=== PATIENT | female | born 1950 | race Caucasian/White ===

== ENCOUNTER 2023-02-05 10:55 | Outpatient (OUT) | payer MEDICARE, OTHER, SELFPAY ==
--- NOTE | 2023-02-05 11:01 | MM_ITS ---
Patient: BREANNA WAN Exam Date: 02/05/2023 : 1950 Gender:F Ordering : DR Isrrael Cruz D.O. Admission #: [id number] Family : Order #: [id number] CLICK HERE TO VIEW EXAM RADIOLOGY REPORT PROCEDURE: MM TOMOSYNTHESIS SCREENING BI COMPARISON: MG MAMM SCREEN 3D GLENYS CAD, 12/08/2021. MG MAMM SCREEN 3D GLENYS CAD, 11/22/2020. MG MAMM SCREEN GLENYS W CAD, 11/21/2019. MG MAMM GLENYS SCRN W CAD DIG, 09/22/2013. INDICATIONS: Screening Calculator Name NCI Breast Cancer Risk Assessment Tool 5 Year Breast Cancer Risk 2.60% Lifetime Breast Cancer Risk 6.30% Personal Breast Cancer No Personal Ovarian Cancer No Treatments None Family Cancers Aunt-maternal with breast cancer at age ~50; Sister with multiple myeloma cancer at age 66. LOCATION: [facility] BREAST COMPOSITION: Heterogeneously dense,which may obscure small masses. FINDINGS: DIAGNOSTIC CATEGORY 2--BENIGN FINDING: RIGHT BREAST: No significant suspicious finding. Stable biopsy marker clip. No significant change has occurred. LEFT BREAST: No significant suspicious finding. Scattered benign-appearing calcifications are present. No significant change has occurred. RECOMMENDATIONS: ROUTINE MAMMOGRAM AND CLINICAL EVALUATION IN 12 MONTHS. PLEASE NOTE: A NORMAL MAMMOGRAM DOES NOT EXCLUDE THE POSSIBILITY OF BREAST CANCER. A CLINICALLY SUSPICIOUS PALPABLE LUMP SHOULD BE BIOPSIED. Dictated by: Andrew Newby M.D. on 02/07/2023 at 09:12 Approved by: Andrew Newby M.D. on 02/07/2023 at 09:55
== END 2023-02-05 10:56 | disposition home or self-care (01) ==
LOC: MAMMO 10:56
PROVIDERS: PCP Internal Medicine; Visit Provider Internal Medicine
DX: Z12.31 Encounter for screening mammogram for malignant neoplasm of breast (principal); Z80.3 Family history of malignant neoplasm of breast; Z80.7 Family history of other malignant neoplasms of lymphoid, hematopoietic and related tissues
CPT/HCPCS: 77063; 77067

== ENCOUNTER 2023-12-10 07:57 | Outpatient (OUT) | payer MEDICARE, OTHER, SELFPAY ==
--- NOTE | 2023-12-10 | ECG_ITS ---
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
--- NOTE | 2023-12-10 08:17 | MM_ITS ---
Patient Name: BREANNA WAN MR#: [id number] : 1950 Exam Date: 12/10/2023 Ordering Doctor: DR Isrrael Cruz D.O. RADIOLOGY REPORT PROCEDURE: MM TOMOSYNTHESIS SCREENING BI COMPARISON: MG MAMM SCREEN 3D GLENYS CAD, 12/08/2021. MM TOMOSYNTHESIS SCREENING BI, 02/05/2023. INDICATIONS: Screening Calculator Name NCI Breast Cancer Risk Assessment Tool 5 Year Breast Cancer Risk 2.60% Lifetime Breast Cancer Risk 6.00% Personal Breast Cancer No Personal Ovarian Cancer No Treatments None Family Cancers Aunt-maternal with breast cancer at age ~50; Sister with multiple myeloma cancer at age 66. LOCATION: [facility] BREAST COMPOSITION: The breasts are heterogeneously dense,which may obscure small masses. FINDINGS: DIAGNOSTIC CATEGORY 2--BENIGN FINDING. NO CHANGE FROM COMPARISON. Scattered benign-appearing calcifications are present. Scattered benign-appearing lymph nodes are present. RIGHT BREAST: No significant suspicious finding. Stable micro clip marker lower inner quadrant, mid breast LEFT BREAST: No significant suspicious finding. RECOMMENDATIONS: ROUTINE MAMMOGRAM AND CLINICAL EVALUATION IN 12 MONTHS. PLEASE NOTE: A NORMAL MAMMOGRAM DOES NOT EXCLUDE THE POSSIBILITY OF BREAST CANCER. A CLINICALLY SUSPICIOUS PALPABLE LUMP SHOULD BE BIOPSIED. Dictated by: David Velasquez MD on 12/10/2023 at 11:27 Approved by: David Velasquez MD on 12/10/2023 at 11:29
== END 2023-12-10 07:58 | disposition home or self-care (01) ==
LOC: MAMMO 07:59
PROVIDERS: PCP Internal Medicine; Visit Provider Internal Medicine
DX: Z12.31 Encounter for screening mammogram for malignant neoplasm of breast (principal); I10 Essential (primary) hypertension; R00.0 Tachycardia, unspecified; Z80.3 Family history of malignant neoplasm of breast; Z80.7 Family history of other malignant neoplasms of lymphoid, hematopoietic and related tissues
CPT/HCPCS: 77063; 77067; 93005

== ENCOUNTER 2024-08-27 10:43 | Outpatient (OUT) | payer MEDICARE, OTHER, SELFPAY ==
--- NOTE | 2024-08-27 10:51 | ECG_ITS ---
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
--- OUTSIDE RECORDS SUMMARY | 2024-08-27 10:55 | XMS_ITS | CCD ---
Author Organization [facility] CliniSyme Care Team Providers Care Machine Engineer Name Role Phone REQUEST, DR RAMOS LISTED Admitting Unavaila ble REQUEST, DR RAMOS LISTED Attending Unavaila ble BALL, DR BROWER Primary Care Unavailable REQUEST, DR RAMOS LISTED Consulting Unavaila ble BALL, DR BROWER Admitting Unavailable BALL, DR BROWER Attending Unavailable BALL, DR BROWER Primary Care Unavailable BALL, DR BROWER Consulting Unavailable WEST, DR JESSICA Hardy Consulting Unavailable Ball, Isrrael Unavailable Allergies Allergy Classification Reported Allergen(s) Allergy Type Date of Onset Reaction(s) Facility (5 sources) ezetimibe Drug Allergy Unknown [facility] Data Other (5 sources) HMG-CoA reductase inhibitor Drug allergy Unknown [facility] Data Other (5 sources) Simvastatin Drug Allergy Unknown [facility]equ[facility] Data Other Medications Current Medications Medication Drug Class(es) Dates Sig (Normalized) Sig (Original) losartan potassium 25 mg oral tablet (4 sources) Angiotensin 2 Receptor Joseph Start: 01-31-2023 take 1 tablet by mouth every twenty-four hours Losartan Potassium 25 MG 1 tablet Orally Once a day Jan, Active rosuvastatin calcium 10 mg oral tablet (5 sources) HMG-CoA Reductase Inhibitor Rosuvastatin Calcium 10 MG TAKE 1 (ONE) TABLET DAILY IN THE EVENING Active Problems Problem Classification Problem Date Documented Date Episodic/Chronic Allergic reactions (5 sources) Allergic contact dermatitis due to plants, except food; Translations: [Allergic contact dermatitis due to plants, except food] Episodic Anxiety disorders (8 sources) Generalized anxiety disorder; Translations: [Generalized anxiety disorder] Chronic Cardiac dysrhythmias (1 source) Tachycardia, unspecified Episodic Diabetes mellitus without complication (1 source) Impaired fasting glucose Episodic Disorders of lipid metabolism (8 sources) Mixed hyperlipidemia; Translations: [Mixed hyperlipidemia] Chronic Essential hypertension (7 sources) Essential hypertension; Translations: [Essential (primary) hypertension] Chronic Genitourinary symptoms and ill-defined conditions (5 sources) Female stress incontinence; Translations: [Stress incontinence (female) (male)] Chronic Miscellaneous mental health disorders (5 sources) Primary insomnia; Translations: [Primary insomnia] Chronic Osteoarthritis (6 sources) Osteoarthritis of knee; Translations: [Bilateral primary osteoarthritis of knee] Chronic Other nutritional; endocrine; and metabolic disorders (6 sources) Body mass index 30+ - obesity; Translations: [Obesity, unspecified] Chronic Other nutritional; endocrine; and metabolic disorders (1 source) Obesity, unspecified Chronic Other nutritional; endocrine; and metabolic disorders (1 source) Obesity caused by energy imbalance; Translations: [Other obesity due to excess calories] Chronic Other nutritional; endocrine; and metabolic disorders (1 source) Other obesity due to excess calories Chronic Other nutritional; endocrine; and metabolic disorders (1 source) Body mass index (BMI) 33.0-33.9, adult Chronic Other screening for suspected conditions (not mental disorders or infectious disease) (5 sources) Encounter for screening mammogram for malignant neoplasm of breast; Translations: [ENC SCR MAMMO MALIG NEOPLASM BREAST] Onset: 12-08-2021 Episodic Residual codes; unclassified (1 source) Family history of malignant neoplasm of breast; Translations: [FAMILY HX MALIG NEOPLASM OF BREAST] Onset: 12-12-2021 Episodic Residual codes; unclassified (1 source) Family history of other malignant neoplasms of lymphoid, hematopoietic and related tissues; Translations: [FAM HX OTH MAL GEOVANI LYMPH HEMATPOETC] Onset: 12-12-2021 Episodic Residual codes; unclassified (5 sources) Postmenopausal state; Translations: [Asymptomatic menopausal state] Episodic Residual codes; unclassified (1 source) Asymptomatic menopausal state Episodic Spondylosis; intervertebral disc disorders; other back problems (5 sources) Lumbar spondylosis; Translations: [Spondylosis without myelopathy or radiculopathy, lumbar region] Chronic Substance-related disorders (8 sources) Tobacco user; Translations: [Nicotine dependence, cigarettes, in remission] Chronic Results Test Name Value Interpretation Reference Range Facility MG MAMM SCREEN 3D GLENYS CADon 12-08-2021 MG MAMM SCREEN 3D GLENYS CAD Patient: BREANNA WAN Exam Date: 12/08/2021 : 1950 Gender:F Ordering : DR ISRRAEL CRUZ D.O. Admission #: [id number] Family : Order #: [id number] CLICK HERE TO VIEW EXAM RADIOLOGY REPORT PROCEDURE: MAMMOGRAM SCREENING 3D BILATERAL CAD COMPARISON: MG MAMM SCREEN GLENYS W CAD, 11/21/2019. MG MAMM SCREEN 3D GLENYS CAD, 11/22/2020. INDICATIONS: Screening mammography Calculator Name NCI Breast Cancer Risk Assessment Tool 5 Year Breast Cancer Risk 2.60% Lifetime Breast Cancer Risk 6.70% Personal Breast Cancer No Personal Ovarian Cancer No Treatments None Family Cancers Aunt-maternal with breast cancer at age 50; Sister with multiple myeloma cancer at age 66. LOCATION: [facility] BREAST COMPOSITION: Heterogeneously dense,which may obscure small masses. FINDINGS: DIAGNOSTIC CATEGORY 1--NEGATIVE. NO CHANGE FROM COMPARISON ASSESSMENT. Scattered benign-appearing calcifications are present. Scattered benign-appearing lymph nodes are present. RIGHT BREAST: No significant suspicious finding. LEFT BREAST: No significant suspicious finding. RECOMMENDATIONS: ROUTINE MAMMOGRAM AND CLINICAL EVALUATION IN 12 MONTHS. PLEASE NOTE: A NORMAL MAMMOGRAM DOES NOT EXCLUDE THE POSSIBILITY OF BREAST CANCER. A CLINICALLY SUSPICIOUS PALPABLE LUMP SHOULD BE BIOPSIED. Dictated by: Jessica Velasquez MD on 12/09/2021 at 11:56 Approved by: Jessica Velasquez MD on 12/09/2021 at 11:59 Normal [facility] CBC AUTO DIFFon 09-07-2021 BASO # 0.1 103/ul Normal 0.0-0.1 [facility] Comment on above: Performed By: #### D ATCBC #### [facility] [address] [address] [address] Pk Duckworth Basophils/100 WBC (Bld) 0.6 % Normal 0.2-2.0 [facility] Comment on above: Performed By: #### D ATCBC #### [facility] [address] [address] [address] Pk Duckworth EO # 0.2 103/ul Normal 0.0-0.7 [facility] Comment on above: Performed By: #### D ATCBC #### [facility] [address] [address] [address] Pk Duckworth Eosinophils/100 WBC (Bld) 2.8 % Normal 0.9-7.0 [facility] Comment on above: Performed By: #### D ATCBC #### [facility] [address] [place] [address] Dr. Pk Duckworth Erythrocyte distribution width (RBC) [Ratio] 12.3 % Normal 11.0-15.0 [facility] Comment on above: Performed By: #### D ATCBC #### [facility] [address] [place] [address] Dr. Pk Duckworth Hematocrit (Bld) [Volume fraction] 47.7 % Normal 36.0-48.0 [facility] Comment on above: Performed By: #### D ATCBC #### [facility] [address] [place] [address] Dr. Pk Duckworth Hemoglobin (Bld) [Mass/Vol] 15.6 g/dL Normal 12.0-16.0 [facility] Comment on above: Performed By: #### D ATCBC #### [facility] [address] [place] [address] Dr. Pk Duckworth IG # 0.02 10e3/ul Normal 0.00-0.03 [facility] Comment on above: Performed By: #### D ATCBC #### [facility] [address] [place] [address] Dr. Pk Duckworth IG % 0.3 % Normal 0.0-0.5 [facility] Comment on above: Performed By: #### D ATCBC #### [facility] [address] [place] [address] Dr. Pk Duckworth LYMPH # 2.4 103/ul Normal 1.2-3.8 [facility] Comment on above: Performed By: #### D ATCBC #### [facility] [address] [place] [address] Dr. Pk Duckworth Lymphocytes/100 WBC (Bld) 30.4 % Normal 20.5-60.0 [facility] Comment on above: Performed By: #### D ATCBC #### [facility] [address] [place] [address] Dr. Pk Duckworth MCH (RBC) [Entitic mass] 29.3 pg Normal 26.7-34.0 [facility] Comment on above: Performed By: #### D ATCBC #### [facility] [address] [address] [address] Pk Duckworth MCHC (RBC) [Mass/Vol] 32.7 g/dL Normal 29.9-35.2 [facility] Comment on above: Performed By: #### D ATCBC #### [facility] [address] [address] [address] Pk Duckworth MCV (RBC) [Entitic vol] 89.7 fL Normal 81.0-99.0 [facility] Comment on above: Performed By: #### D ATCBC #### [facility] [address] [place] [address] Dr. Pk Duckworth MONO # 0.4 103/ul Normal 0.3-0.8 [facility] Comment on above: Performed By: #### D ATCBC #### [facility] [address] [place] [address] Dr. Pk Duckworth Monocytes/100 WBC (Bld) 5.5 % Normal 1.7-12.0 [facility] Comment on above: Performed By: #### D ATCBC #### [facility] [address] [place] [address] Dr. Pk Duckworth NEUT # 4.8 103/ul Normal 1.4-6.5 [facility] Comment on above: Performed By: #### D ATCBC #### [facility] [address] [place] [address] Dr. Pk Duckworth Neutrophils/100 WBC (Bld) 60.4 % Normal 43.0-75.0 [facility] Comment on above: Performed By: #### D ATCBC #### [facility] [address] [place] [address] Dr. Pk Duckworth Platelet mean volume (Bld) [Entitic vol] 10.3 fL Normal 9.5-13.5 [facility] Comment on above: Performed By: #### D ATCBC #### [facility] [address] [place] [address] Dr. Pk Duckworth PLT 270 103/ul Normal 150-450 [facility] Comment on above: Performed By: #### D ATCBC #### [facility] [address] [address] [address] Pk Duckworth RBC 5.32 106/ul Normal 4.20-5.40 [facility] Comment on above: Performed By: #### D ATCBC #### [facility] [address] [address] [address] Pk Duckworth WBC 8.0 103/ul Normal 4.0-11.0 [facility] Comment on above: Performed By: #### D ATCBC #### [facility] [address] [place] [address] Dr. Pk Duckworth CAMRON- BMP WITH LIPIDon 2021 Anion gap [Moles/Vol] 11.9 mmol/L Normal [facility] Comment on above: Performed By: #### D ATBMP #### [facility] [address] [place] [address] Dr. Pk Duckworth Calcium [Mass/Vol] 9.1 mg/dL Normal 8.4-10.2 [facility] Comment on above: Performed By: #### D ATBMP #### [facility] [address] [place] [address] Dr. Pk Duckworth Chloride [Moles/Vol] 102 mmol/L Normal 98-107 [facility] Comment on above: Performed By: #### D ATBMP #### [facility] [address] [place] [address] Dr. Pk Duckworth Cholesterol [Mass/Vol] 227 mg/dL Critically high <=200 [facility] Comment on above: Performed By: #### D ATBMP #### [facility] [address] [place] [address] Dr. Pk Duckworth Cholesterol in HDL [Mass/Vol] 60 mg/dL Normal [facility] Comment on above: Performed By: #### D ATBMP #### [facility] [address] [place] [address] Dr. Pk Duckworth Cholesterol in LDL [Mass/Vol] 104.2 mg/dL Normal [facility] Comment on above: Performed By: #### D ATBMP #### [facility] [address] [address] [address] Pk Duckworth CO2 [Moles/Vol] 30.2 mmol/L Critically high 22.0-30.0 [facility] Comment on above: Performed By: #### D ATBMP #### [facility] [address] [address] [address] Pk Duckworth Creatinine [Mass/Vol] 0.71 mg/dL Normal 0.52-1.04 [facility] Comment on above: Performed By: #### D ATBMP #### [facility] [address] [address] [address] Pk Duckworth EGFR-AF FINNISH >60 Normal >=60 [facility] Comment on above: Performed By: #### D ATBMP #### [facility] [address] [address] [address] Pk Duckworth EGFR-NON AF FINNISH >60 Normal >=60 [facility] Comment on above: Performed By: #### D ATBMP #### [facility] [address] [address] [address] Pk Duckworth Glucose [Mass/Vol] 113 mg/dL Critically high 74-106 [facility] Comment on above: Performed By: #### D ATBMP #### [facility] [address] [address] [address] Pk Duckworth HDL NORMAL > or = 60 mg/dl - LO W CARDIOVASCULAR RISK <40 mg/dl - HIGH CARDIOVASCULAR RISK Normal [facility] Comment on above: Performed By: #### D ATBMP #### [facility] [address] [address] [address] Pk Duckworth LDL CALC NORMAL SEE BELOW Normal [facility] Comment on above: Result Comment: <100 mg/dl OPTIMAL 100 - 129 mg/dl NEAR OR ABOVE OPTIMAL 130 - 159 mg/dl BORDERLINE HIGH 160 - 189 mg/dl HIGH >190 mg/dl VERY HIGH Performed By: #### D ATBMP #### [facility] [address] [address] [address] Pk Duckworth Potassium [Moles/Vol] 4.1 mmol/L Normal 3.4-5.0 [facility] Comment on above: Performed By: #### D ATBMP #### [facility] [address] [address] [address] Pk Duckworth Sodium [Moles/Vol] 140 mmol/L Normal 137-145 [facility] Comment on above: Performed By: #### D ATBMP #### [facility] [address] [address] [address] Pk Duckworth Triglyceride [Mass/Vol] 314 mg/dL Critically high <=150 [facility] Comment on above: Performed By: #### D ATBMP #### [facility] [address] [address] [address] Pk Duckworth Urea nitrogen [Mass/Vol] 19.0 mg/dL Critically high 7.0-17.0 [facility] Comment on above: Performed By: #### D ATBMP #### [facility] [address] [place] [address] Dr. Pk Duckworth Urea nitrogen/Creatinine [Mass ratio] 26.8 mg/mg Normal [facility] Comment on above: Performed By: #### D ATBMP #### [facility] [address] [place] [address] Dr. Pk Duckworth VLDL CALC 62.8 mg/dL Normal [facility] Comment on above: Performed By: #### D ATBMP #### [facility] [address] [address] [address] Pk Duckworth CBC Without Differentialon 0 10-02-2020 Erythrocyte distribution width (RBC) [Ratio] 13.2 % Normal 11.9-15.3 [facility] Comment on above: Performed By: #### O RAVI CMP, OUTREACH LIPID, CBCNOOUTREACH #### [facility] [address] Hematocrit (Bld) [Volume fraction] 44.5 % Normal 34.0-46.4 [facility] Comment on above: Performed By: #### O UTREACH CMP, OUTREACH LIPID, CBCNOOUTREACH #### [address] Hemoglobin (Bld) [Mass/Vol] 15.0 g/dL Normal 11.8-15.4 [facility] Comment on above: Performed By: #### O UTREACH CMP, OUTREACH LIPID, CBCNOOUTREACH #### [address] MCH (RBC) [Entitic mass] 30.3 pg Normal 24.7-34.3 [facility] Comment on above: Performed By: #### O UTREACH CMP, OUTREACH LIPID, CBCNOOUTREACH #### [address] MCV (RBC) [Entitic vol] 89.9 fL Normal 80-100 [facility] Comment on above: Performed By: #### O UTREACH CMP, OUTREACH LIPID, CBCNOOUTREACH #### [address] Mean Corpuscular HGB Conc 33.7 g/dL Normal 32.0-35.0 [facility] Comment on above: Performed By: #### O UTREACH CMP, OUTREACH LIPID, CBCNOOUTREACH #### [address] Platelet mean volume (Bld) [Entitic vol] 9.4 fL Normal 6.3-10.7 [facility] Comment on above: Result Comment: PERF ORMED BY: [place] [id number] PATHOLOGIST [employer]PER[employer]OR ALONDRA SOMERS M.D. Performed By: #### O UTREACH CMP, OUTREACH LIPID, CBCNOOUTREACH #### [address] Platelets (Bld) [#/Vol] 277 10*3/uL Normal 150-450 [facility] Comment on above: Performed By: #### O UTREACH CMP, OUTREACH LIPID, CBCNOOUTREACH #### [place] [address] [place] RBC (Bld) [#/Vol] 4.95 10*6/uL Normal 3.60-5.00 [facility] Comment on above: Performed By: #### O UTREACH CMP, OUTREACH LIPID, CBCNOOUTREACH #### [facility] [address] [place] [address] WBC (Bld) [#/Vol] 6.7 10*3/uL Normal 3.8-11.6 [facility] Comment on above: Performed By: #### O UTREACH CMP, OUTREACH LIPID, CBCNOOUTREACH #### [facility] [address] [place] [address] CMP Outreachon 10-02-2020 Albumin [Mass/Vol] 4.2 g/dL Normal 3.2-5.5 [facility] Comment on above: Performed By: #### O UTREACH CMP, OUTREACH LIPID, CBCNOOUTREACH #### [facility] [address] [place] [address] ALP [Catalytic activity/Vol] 76 U/L Normal 32-92 [facility] Comment on above: Performed By: #### O UTREACH CMP, OUTREACH LIPID, CBCNOOUTREACH #### [address] ALT [Catalytic activity/Vol] 27 U/L Normal 10-60 [facility] Comment on above: Performed By: #### O UTREACH CMP, OUTREACH LIPID, CBCNOOUTREACH #### [facility] [address] [place] [address] AST [Catalytic activity/Vol] 26 U/L Normal 10-42 [facility] Comment on above: Performed By: #### O UTREACH CMP, OUTREACH LIPID, CBCNOOUTREACH #### [facility] [address] [place] [address] Bilirubin [Mass/Vol] 0.9 mg/dL Normal 0.3-1.2 [facility] Comment on above: Performed By: #### O UTREACH CMP, OUTREACH LIPID, CBCNOOUTREACH #### [address] [place] [address] [place] Calcium [Mass/Vol] 9.4 mg/dL Normal 8.2-10.2 [facility] Comment on above: Performed By: #### O UTREACH CMP, OUTREACH LIPID, CBCNOOUTREACH #### [facility] [address] [place] [address] [place] Chloride [Moles/Vol] 102 mmol/L Normal 95-114 [facility] Comment on above: Performed By: #### O UTREACH CMP, OUTREACH LIPID, CBCNOOUTREACH #### [facility] [address] [place] [address] [place] CO2 [Moles/Vol] 27.4 mmol/L Normal 22.0-30.0 [facility] Comment on above: Performed By: #### O UTREACH CMP, OUTREACH LIPID, CBCNOOUTREACH #### [facility] [address] [place] [address] [place] Creatinine [Mass/Vol] 0.62 mg/dL Normal 0.44-1.03 [facility] Comment on above: Performed By: #### O UTREACH CMP, OUTREACH LIPID, CBCNOOUTREACH #### [facility] [address] [place] [address] Estimated GFR ( Krystal > 60 [facility] Comment on above: Result Comment: GFR estimated reference range: According to KDOQI guidelines, <60 ml/min/1.73m2 is sufficient to diagnose a patient with chronic kidney disease. Performed By: #### O UTREACH CMP, OUTREACH LIPID, CBCNOOUTREACH #### [facility] [address] [place] [address] [place] Estimated GFR (Non- Am > 60 [facility] Comment on above: Performed By: #### O UTREACH CMP, OUTREACH LIPID, CBCNOOUTREACH #### [facility] [address] [place] [address] [place] Glucose [Mass/Vol] 107 mg/dL High 70-100 [facility] Comment on above: Result Comment: [place] Glucose Reference Range is dependent on time and content of last meal. Glucose of more than 200 mg/dL in a nonstressed, ambulatory subject supports the diagnosis of Diabetes Mellitus. ADA recommended reference range Performed By: #### O UTREACH CMP, OUTREACH LIPID, CBCNOOUTREACH #### [facility] [address] Potassium [Moles/Vol] 3.9 mmol/L Normal 3.5-5.1 [facility] Comment on above: Performed By: #### O UTREACH CMP, OUTREACH LIPID, CBCNOOUTREACH #### [facility] [address] [place] [address] [place] Protein [Mass/Vol] 6.9 g/dL Normal 6.1-7.9 [facility] Comment on above: Performed By: #### O UTREACH CMP, OUTREACH LIPID, CBCNOOUTREACH #### [facility] [address] [place] [address] [place] Sodium [Moles/Vol] 140 mmol/L Normal 136-146 [facility] Comment on above: Performed By: #### O UTREACH CMP, OUTREACH LIPID, CBCNOOUTREACH #### [facility] [address] [place] [address] [place] Urea nitrogen [Mass/Vol] 12 mg/dL Normal 9-23 [facility] Comment on above: Performed By: #### O UTREACH CMP, OUTREACH LIPID, CBCNOOUTREACH #### [facility] [address] [place] [address] Lipid Profile Outreachon Cholesterol [Mass/Vol] 248 mg/dL High 140-200 [facility] Comment on above: Result Comment: Chol less than 200 mg/dl low risk Chol 201-239 mg/dl borderline risk Chol 240 mg/dl and greater high risk Performed By: #### O UTREACH CMP, OUTREACH LIPID, CBCNOOUTREACH #### [facility] [address] [id number] [facility] Cholesterol in HDL [Mass/Vol] 57 mg/dL Normal 35-85 [facility] Comment on above: Result Comment: HDL CHOL ATP-III CLASSIFICATION Cardiovascular Risk HDL > or equal to 60 mg/dL LOW HDL < 40 mg/dL HIGH Performed By: #### O UTREACH CMP, OUTREACH LIPID, CBCNOOUTREACH #### [facility] [address] Cholesterol.total/C holesterol in HDL [Mass ratio] 4.4 {ratio} Normal <5.0 [facility] Comment on above: Result Comment: PERF ORMED BY: [place] [id number] PATHOLOGIST [employer] SUPER[employer]OR ALONDRA SOMERS M.D. Performed By: #### O UTREACH CMP, OUTREACH LIPID, CBCNOOUTREACH #### [facility] [address] LDL Cholesterol,Calcula yecenia 130 mg/dL High 0-100 [facility] Comment on above: Result Comment: LDL ATP III CLASSIFICATION LDL less than 100 mg/dL Optimal LDL 100-129 mg/dL Near or above optimal LDL 130-159 mg/dL Borderline high LDL 160-189 mg/dL High LDL greater than 189 mg/dL Very high Performed By: #### O UTREACH CMP, OUTREACH LIPID, CBCNOOUTREACH #### [facility] [address] Triglyceride w/Reflex 303 mg/dL High 35-149 [facility] Comment on above: Result Comment: TRIG ATP III CLASSIFICATION TRIG less than 150 mg/dL Normal TRIG 150-199 mg/dL Borderline high TRIG 200-500 mg/dL High TRIG greater than 500 mg/dL Very high Standard traceable to the Center for Disease Conrtrol and Prevention (CDC) test method. Performed By: #### O UTREACH CMP, OUTREACH LIPID, CBCNOOUTREACH #### [facility] [address] VLDL CHOLESTEROL 60 mg/dL Normal [facility] Comment on above: Performed By: #### O UTREACH CMP, OUTREACH LIPID, CBCNOOUTREACH #### [facility] [address] Progress Note-Physicianon Progress Note-Physician Patient: BREANNA WAN Age: 70 years Sex: Female : 1950 Associated Diagnoses: None Author: Jose M Jones CRNA Review of Systems Constitutional: Negative. Health Status Allergies: Allergic Reactions (Selected) No Known Allergies, Allergies (1) Active Reaction No Known Allergies None Documented Current medications: (Selected) Inpatient Medications Ordered Ocuflox 0.3% Soln-Opth: 1 drop(s), Soln-Opth, Eye-Left, q10min for 3 dose(s), Stop date 08/10/20 7:59:00 EST, Routine, Start date 08/10/20 7:30:00 EST Phenylephrine 2.5% Soln-Opth: 1 drop(s), Soln-Opth, Eye-Left, q10min for 3 dose(s), Stop date 08/10/20 7:59:00 EST, Routine, Start date 08/10/20 7:30:00 EST Valium 5 mg Tab: 5 mg = 1 tab(s), Tab, Oral, PREOP, Routine, Start date 08/10/20 7:30:00 EST acetaminophen 325 mg Tab: 975 mg = 3 tab(s), Tab, Oral, Once, Stop date 08/10/20 8:00:00 EST, Routine, Start date 08/10/20 8:00:00 EST cyclopentolate Opth 1% Nicole 2 mL: 1 drop(s), Soln-Opth, Eye-Left, q10min for 3 dose(s), Stop date 08/10/20 7:59:00 EST, Routine, Start date 08/10/20 7:30:00 EST moxifloxacin 150 microgram/ 0.1 mL Intracameral: 750 mcg, 0.5 mL, Soln-Opth, Eye-Left, Once, Stop date 08/10/20 8:00:00 EST, Routine, Start date 08/10/20 8:00:00 EST tropicamide Opth 1% Nicole 15 mL: 1 drop(s), Soln-Opth, Eye-Left, q10min for 3 dose(s), Stop date 08/10/20 7:59:00 EST, Routine, Start date 08/10/20 7:30:00 EST Documented Medications Documented [place] Calcium with Vitamin D: 1 tab(s), Oral, Daily, Prophylaxis CoQ10: 400 mg, Oral, Daily, Prophylaxis Multivitamin, Therapeutic w/ Minerals: 1 tab(s), Oral, Daily, Prophylaxis rosuvastatin 10 mg Tab: 10 mg = 1 tab(s), Oral, Daily, Prophylaxis, Home Medications (4) Active [place] Calcium with Vitamin D 1 tab(s), Oral, Daily CoQ10 400 mg, Oral, Daily Multivitamin, Therapeutic w/ Minerals 1 tab(s), Oral, Daily rosuvastatin 10 mg Tab 10 mg = 1 tab(s), Oral, Daily Problem list: No qualifying data available Histories Past Medical History: No active or resolved past medical history items have been selected or recorded. Family History: No family history items have been selected or recorded. Procedure history: No active procedure history items have been selected or recorded. Social History Social & Psychosocial Habits No Data Available . Physical Examination Measurements from flowsheet : Measurements 08/09/2020 11:41 EST Height/Length Dosing 157.5 cm Weight Dosing 79.8 kg 08/09/2020 9:31 EST Height/Length Measured 157.48 cm Height/Length Dosing 157.5 cm Weight Dosing 79.8 kg BSA Measured 1.87 m2 Body Mass Index Measured 32.19 kg/m2 Weight Measured 79.83 kg Review / Management Results review: No qualifying data available . Normal [facility] Comment on above: Result Comment: Elec tronically Signed By: Jose M Jones CRNA IntraOperative Documentson 0 08-13-2020 IntraOperative Documents [id number]#1.00CD :127 Normal [facility] Coding Summary.on 08-12-2020 Coding Summary. CODING DATE: 021 FINAL [facility] STATUS: Home (Routine DC) PAYOR: Commercial Insurance ADMIT DX: REASON FOR VISIT DX: Z01.812 Encounter for preprocedural laboratory examination FINAL DX: PRINCIPAL: Z01.812 Encounter for preprocedural laboratory examination SECONDARY: Z20.828 Contact with and (suspected) exposure to other viral communicable diseases PYMT PROC APC STAT DESCRIPTION DOCTOR NAME DATE NOTE: The code number assigned matches the documented diagnosis and / or procedure in the patient's chart. However, the narrative phrase printed from the coding software may appear abbreviated, or result in slightly different terminology. Coded By: Scarlett Quinones CphT Date Saved: 08/12/2020 08:05 pm Normal [facility] Coding Summary. CODING DATE: FINAL [facility] STATUS: Home (Routine DC) PAYOR: Medicare APC DESCRIPTION 5491 Level 1 Intraocular Procedures ADMIT DX: REASON FOR VISIT DX: H25.13 Age-related nuclear cataract, bilateral FINAL DX: PRINCIPAL: H25.13 Age-related nuclear cataract, bilateral SECONDARY: E78.00 Pure hypercholesterolemia, unspecified PYMT PROC APC STAT DESCRIPTION DOCTOR NAME DATE 75310 5491 J1 Extracapsular cataract Patrick Calle DO 08/10/2020 removal with insertion of intraocular lens prosthesis (1 stage procedure), manual or mechanical technique (eg, irrigation and aspiration or phacoemulsification); without endoscopic cyclophotocoagulation LT Left side (used to identify procedures performed on the left side of the body) NOTE: The code number assigned matches the documented diagnosis and / or procedure in the patient's chart. However, the narrative phrase printed from the coding software may appear abbreviated, or result in slightly different terminology. Revised Coded By: Ekaterina Greene Revised Date Saved: 08/11/2020 01:53 pm [facility] Main OR Intraoperative Recor don 08-12-2020 Main OR Intraoperative Record IntraOp Document Type FT Summary Primary Physician: Patrick Calle DO Finalized Date/Time: 08/12/20 13:24:28 Pt. Name: BREANNA WAN/Sex: 1950 Female Med Rec #: [id number] Physician: Patrick Calle DO Financial #: [id number] Pt. Type: A Room/Bed: AS08/ Admit/Disch: 08/10/20 07:24:15 - 08/10/20 10:30:00 Institution: Case Times FT Entry 1 Patient Times In Room 08/10/20 09:20:00 Out Room 08/10/20 09:38:00 Procedure Times Start 08/10/20 09:25:00 Stop 08/10/20 09:37:00 Anesthesia Times Last Modified By: Viviane Arzate RN 08/10/20 09:37:47 General Comments: 08/12/2020 - chart logged and finalized for charges. Dwayne Pascual, MSN, RN Case Attendance FT Entry 1 Entry 2 Entry 3 Case Attendee Patrick Calle DO RN, Felicia Garcia RN Role Performed Surgeon - Primary Senior Planner - Primary Senior Planner - Primary Time In 08/10/20 09:20:00 08/10/20 09:20:00 08/10/20 09:20:00 Time Out 08/10/20 09:38:00 08/10/20 09:38:00 08/10/20 09:38:00 Procedure CATARACT EXTRACTION W/ CATARACT EXTRACTION W/ CATARACT EXTRACTION W/ INTRAOCULAR LENS(Left) INTRAOCULAR LENS(Left) INTRAOCULAR LENS(Left) Comments Last Modified By: Huey MURILLO, Viviane Arzate RN, Viviane Arzate RN, Viviane Johnson 08/10/20 09:37:49 08/10/20 09:37:49 08/10/20 09:37:49 Entry 4 Entry 5 Case Attendee Lamar HARO/SACriss Rachel L Role Performed Scrub - Primary Staff - Other Time In 08/10/20 09:20:00 08/10/20 09:20:00 Time Out 08/10/20 09:38:00 08/10/20 09:38:00 Procedure CATARACT EXTRACTION W/ CATARACT EXTRACTION W/ INTRAOCULAR LENS(Left) INTRAOCULAR LENS(Left) Comments Last Modified By: Huey MURILLO, Viviane Arzate RN, Viviane Johnson 08/10/20 09:37:49 08/10/20 09:37:49 Perioperative Protocols FT Pre-Care Text: Implements protective measures prior to operative or invasive procedure, confirms identity before the operative or invasive procedure, verifies operative procedure, surgical site, and laterality Entry 1 Procedure(s) CATARACT EXTRACTION W/ Patient Identity Birthday, ID Band INTRAOCULAR LENS(Left) Verified (select at Check, Patient least 2): Participation Consents / H and P HandP, Surgery/Procedure Operative Site Present Verified Consent Marking Verified Surgical Site Yes Laterality Verified Yes Verified Procedure Verified Yes Correct Patient Yes Position Verified Availability Equipment, Implant, Prep Dry n/a Verified (If Medication Applicable) PreOp Antibiotic No Time Out Patrick Calle DO, Sita Arzate RN, Viviane J, Renner RN, Lamar Appiah ASSISTANT MANAGER/EMBALMER/, Criss Time Out Complete 08/10/20 09:23:00 Outcomes Met? Yes Last Modified By: Viviane Arzate RN 08/10/20 09:25:18 Post-Care Text: The patient is free from signs and symptoms of injury caused by extraneous objects Allergy Information FT Pre-Care Text: Verifies allergies Entry 1 Allergies Reviewed? Yes Allergies Reviewed Self/Patient With Outcomes Met? Yes Last Modified By: Viviane Arzate RN 08/10/20 09:26:04 Post-Care Text: The patient received appropriate medication(s) safely administered during the perioperative period Surgical Procedures FT Entry 1 Procedure Description Procedure CATARACT EXTRACTION W/ Modifiers Left INTRAOCULAR LENS IMPLANTATION Surgeon Description LEFT EYE CATARACT EXTRACTION WITH INTRAOCULAR LENS IMPLANTATION Primary Procedure Yes Primary Surgeon Patrick Calle DO 08/10/20 09:25:00 Stop 08/10/20 09:37:00 Anesthesia Type Local Surgical Service Ophthalmology Wound Class 1 - Clean Last Modified By: Viviane Arzate RN 08/10/20 09:38:18 General Case Data FT Pre-Care Text: Classifies surgical wound, implements aseptic technique, initiates traffic control Entry 1 Case Information OR OR 3 FT Case Level Level 2 Wound Class 1 - Clean Specialty Ophthalmology Preop Diagnosis LEFT EYE CATARACT Postop Same As Preop Yes Postop Diagnosis LEFT EYE CATARACT Outcomes Met? Yes Last Modified By: Viviane Arzate RN 08/10/20 09:26:37 Post-Care Text: The patient is free from signs and symptoms of infection Skin Assessment (Pre Procedure) FT Pre-Care Text: Implements protective measures to prevent skin/ tissue injury due to thermal or mechanical sources Evaluates for signs and symptoms of physical injury to skin and tissue Entry 1 Skin Integrity Unable to Visualize Skin Abnormality No Outcomes Met? Yes Last Modified By: Viviane Arzate RN 08/10/20 09:26:32 Post-Care Text: The patient is free from signs and symptoms of injury caused by extraneous objects Patient Positioning FT Pre-Care Text: Identifies physical alterations that require additional precautions for procedure-specific positioning, verifies presence of prosthetics or corrective devices, positions the patient, evaluates the patient for signs and symptoms of injury as a result of positioning Entry 1 Procedure CATARACT EXTRACTION W/ Additional folded towel under head INTRAOCULAR LENS(Left) Information Body Position Supine Feet Uncrossed? Yes Left Arm Position Resting at Side Right Arm Position Resting at Side Left Leg Position Extended Right Leg Position Extended Positioning Device Pillow Large Under Knees Press Points Checked Yes By Viviane Arzate RN Outcomes Met? Yes Last Modified By: Viviane Arzate RN 08/10/20 09:26:48 Post-Care Text: The patient is free from signs and symptoms of injury related to positioning Patient Care Devices FT Pre-Care Text: Implements protective measures to prevent skin/ tissue injury due to thermal or mechanical sources Entry 1 Entry 2 Entry 3 Equipment Type MICROSCOPE EYE[F] MONITOR CHARGE SURGERY PHACO UNIT[F] [F] Equipment Number Equipment Setting Outcomes Met? Yes Yes Yes Last Modified By: Viviane Arzate RN, RN, Viviane Valerio RN 08/10/20 07:58:10 08/10/20 07:58:10 08/10/20 07:58:10 Post-Care Text: The patient is free from signs and symptoms of injury caused by extraneous objects Transport To OR FT Pre-Care Text: Transports according to individual needs. Evaluates for signs and symptoms of skin and tissue injury as a result of transfer or transport Entry 1 Via Cart By Viviane Arzate RN Safety Precautions Side Rails Up Outcomes Met? Yes Last Modified By: Viviane Arzate RN 08/10/20 09:26:54 Post-Care Text: The patient is free from signs and symptoms of injury related to transfer/transport Counts Verification FT Pre-Care Text: Performs required counts Entry 1 Procedure(s) CATARACT EXTRACTION W/ Type Initial INTRAOCULAR LENS(Left) Items Instruments Status Correct By Lamar HARO/Criss DANIELSON Outcomes Met? Yes Last Modified By: Viviane Arzate RN 08/10/20 09:33:43 Post-Care Text: The patient is free from signs and symptoms of injury caused by extraneous objects Skin Prep FT Pre-Care Text: Performs skin preparations Entry 1 Procedure CATARACT EXTRACTION W/ Prep Area operative site LEFT EYE INTRAOCULAR LENS(Left) Prep Agents Saline Rinse, Betadine Scrub and Solution Hair Removal Methods Not Indicated By Felicia Renner RN Outcomes Met? Yes Last Modified By: Viviane Arzate RN 08/10/20 09:32:30 Post-Care Text: The patient is free from signs and symptoms of infection Departure From OR FT Pre-Care Text: Transports according to individual needs. Evaluates for signs and symptoms of skin and tissue injury as a result of transfer or transport. Entry 1 Via Cart Safety Precautions Side Rails Up PostOp Destination Pre Surgery/ASU Transported By Viviane Arzate RN Patient Status Stable Skin. Condition Unable to Visualize Airway Maintenance Oxygen in Use? No Outcomes Met? Yes Last Modified By: Viviane Arzate RN 08/10/20 09:32:09 Post-Care Text: The patient is free from signs and symptoms of injury related to transfer/transport General Comments: PATIENT TAKEN BACK TO [facility] VIA TRANSPORTER FOR DISCHARGE HOME. LIDIA MORRISON Dressing/Packing FT Pre-Care Text: Administers care to wound sites Entry 1 Type Dressing Site and Details EYE SHIELD AND PAPER TAPE TO LEFT EYE Outcomes Met? Yes Last Modified By: Viviane Arzate RN 08/10/20 09:31:32 Post-Care Text: The patient is free from signs and symptoms of infection Medication Administration FT Pre-Care Text: Verifies allergies, administers prescribed medications and solutions, administers prescribed antibiotic therapy and immunizing agents as ordered, evaluates response to medications Administers prescribed medications and solutions Entry 1 Route of Admin Field Expiration Date Yes Verified Outcomes Met? Yes Last Modified By: Viviane Arzate RN 08/10/20 07:58:24 Post-Care Text: The patient received appropriate medication(s) safely administered during the perioperative period For Arizmendi-Armen please see scanned medication reconcilliation form for medications used at the field during the procedure. Implant Log FT Pre-Care Text: Records devices implanted during the operative or invasive procedure Entry 1 Procedure CATARACT EXTRACTION W/ Implant/Explant Implant INTRAOCULAR LENS(Left) Implant Identification FT Description LILO [id number] 12.50MM Serial Number [id number] 22.00 [[id number]][F] Lot Number [id number] Logistics Administrator FT[employer] Catalog ?# [id number] [F] Size 22.0 Expiration Date 01/29/23 Unique Device [id number] Identifier (FLAKITA) Human Readable {[id number] Machine Readable [id number] Barcode Barcode Usage Data FT Implant Site Ear L Quantity 1 Implanted By Patrick Calle DO Biological Implants MR Classification Unknown Outcomes Met? Yes Last Modified By: Viviane Arzate RN 08/10/20 09:31:01 Post-Care Text: The patient is free from signs and symptoms of injury caused by extraneous objects Case Comments Finalized By: SONIA Pascual RN, Andrea Document Signatures Signed By: Viviane Arzate RN 08/10/20 09:38 SONIA Pascual RN, Andrea 08/12/20 13:24 Normal [facility] Operative Reporton Operative Report Date of Surgery: 08/10/2020 SURGEON: Patrick Calle D.O. PREOPERATIVE DIAGNOSIS: Nuclear sclerotic cataract, left eye POSTOPERATIVE DIAGNOSIS: Nuclear sclerotic cataract, left eye OPERATION: Cataract extraction with intraocular lens placement, left eye ANESTHESIA: Topical COMPLICATIONS: None ESTIMATED BLOOD LOSS: Zero PROCEDURE: The patient was brought to the Operating Room in the supine position. After proper identification, the left eye was prepped and draped in a sterile ophthalmic fashion. Two drops of Tetracaine were placed into the eye and a paracentesis was created at the two oclock position. Approximately 1 cc of 1% unpreserved Xylocaine was injected into the anterior chamber and this was followed by Amvisc Plus. Using a 2.6 mm keratome blade, a clear corneal incision was created at the twelve oclock limbus. A cystotome was fashioned out of a 25 gauge needle and a curvilinear capsulorrhexis was begun and continued for 360 degrees with Utrata forceps. Balanced Salt Solution on a cannula was injected under the anterior capsule to hydrodissect as well as hydrodelineate the lens. After ensuring mobility with a second handpiece, phacoemulsification was performed in a conquer and divide type fashion. After all nuclear material had been removed from the eye, IA was introduced into the anterior chamber and all residual cortical material was cleaned up. Additional Amvisc Plus was injected into the posterior bag and a lens Model MX60 22.0 diopters was injected into the posterior bag as well. This was dialed into position with a secondhand piece and centered. After ensuring centration, IA was reintroduced into the anterior chamber and all residual Amvisc Plus was removed from the eye. Balanced Salt Solution on a cannula was injected into the stroma of the clear corneal incision as well as the paracentesis to hydrate the wounds. Additional Balanced Salt Solution was injected into the anterior chamber to pressurize the eye to approximately 20-22 mmHg by finger tension. Weck-abdiel sponges were then utilized to check the wounds to be watertight. One drop of Iopidine, one drop of prednisolone acetate and one drop of Ocuflox were placed into the eye and a shield was placed over top. The patient was sent to the Postoperative Area in satisfactory condition to follow up the following day for postoperative care. Patrick Calle D.O. gls Dictated: 08/10/2020 #[id number] Typed: 08/11/2020 #[id number] cc: Patrick Calle D.O. [facility] Comment on above: Result Comment: Elec tronically Signed By: Patrick Calle DO\.br\Date and Time Signed: 08/12/20 14:09 EST Discharge Instructionson Discharge Instructions [id number] :127 [facility] IntraOperative Documentson 08-11-2020 IntraOperative Documents [id number]#1.00CD :127 [facility] Preoperative Documentson Preoperative Documents [id number]#1.00CD :127 [facility] Consent for Procedure/Surger yon 08-10-2020 Consent for Procedure/Surgery [id number]#1.00CD :127 [facility] Consent for Treatmenton Consent for Treatment [id number]#1.00CD: 127 [facility] History and Physicalon 08-10 History and Physical Handp Reviewed. No changes since dictated. HOSPITAL REGULATIONS: ALL Positive Important Negative Findings Shall Be Recorded DATE ADMITTED: 08/10/2020 HISTORY: The patient is a 70-year-old white female with complaints of declining vision out of her left eye. Gradually over the last year, she has felt that she is bothered by halos and glare at nighttime due to headlights creating these from oncoming traffic. She is also stating she is having difficulty reading. Objects such as crossword puzzles are difficult to see the clues. PAST OCULAR HISTORY: Cataracts. PAST MEDICAL HISTORY: 1. Hypercholesterolemia. 2. Hysterectomy. 3. Gallbladder removed. 4. Knee surgery. 5. Carpal tunnel. 6. Tonsillectomy. PSYCHOSOCIAL HISTORY: Denies tobacco, alcohol or recreational drug abuse. SYSTEMIC MEDICATIONS: Fenofibrate. ALLERGIES: Denies. REVIEW OF SYSTEMS: No pertinent positives. PHYSICAL EXAMINATION: VITAL SIGNS: Blood pressure measured at 150/94 with a respiration rate of 12 and pulse of 94. GENERAL: She is awake, alert and oriented x3, well developed, well nourished. No acute distress. HEART: Regular rate and rhythm. LUNGS: Clear bilaterally. ABDOMEN: Soft, nontender, nondistended. EXTREMITIES: No pitting edema. EYES: Ophthalmic examination revealed a visual acuity of 20/40 in the right that glared to 20/100 and 20/30 in the left that glared to 20/100. Pupils, motility, muscle balance, confrontation to visual crowell are within normal limits bilaterally. Pressures are measured at 16 bilaterally. Slit-lamp examination revealed blepharitis with a severe decrease in tear film bilaterally. Conjunctivae, cornea, anterior chamber and iris are within normal limits bilaterally. Lens status demonstrated 2+ nuclear sclerosis with 2+ cortical changes bilaterally. Fundus examination revealed a good view with good dilation bilaterally. Optic discs, macula, vessels, periphery and vitreous within normal limits bilaterally. ASSESSMENT AND PLAN: 1. Visually significant cataract, left eye. After risks, benefits, alternatives as well as expectations were delivered to the patient, she elected to go forward with cataract removal. She understands those risks to include but are not limited to infection, bleeding, loss of vision or loss of the eye itself. Secondly, she understands that postoperatively she is likely to require spectacle correction for her best visual acuity. Finally, a complete ophthalmic examination was performed and there was not determined to be any other source of vision decline other than that of the cataract. 2. COVID-19: The patient was briefed on the condition of COVID-19 and the increased risk of its contraction in the hospital setting. The patient understands that these risks occur and she is willing to assume these risks given the severity of diminishment in activities of daily living. Patrick Calle D.O. gls Dictated: 08/09/2020 #[id number] Typed 08/10/2020 #[id number] cc: Patrick Calle D.O. [facility] Comment on above: Result Comment: Elec tronically Signed By: Patrick Calle DO\.br\Date and Time Signed: 08/10/20 08:05 EST Inpatient Patient Summaryon 08-10-2020 Inpatient Patient Summary [place] [id number] [facility] Clinical Discharge Instructions PERSON INFORMATION Name: SAVAGEBREANNA CANDELARIO Alex [facility]YSICIANS Admitting Physician: Patrick Calle DO Attending Physician: Patrick Calle DO PCP: ISRRAEL CRUZ DO Discharge Diagnosis: Cataract Comment: PATIENT EDUCATION INFORMATION Instructions: Medication Leaflets: Follow up: With: Address: When: Patrick Calle [facility] [address], [address] [place] [address] Business (1) Within 1 to 2 days MEDICATION LIST Medications to Continue with No Changes Other Medications biotin (Hair, Skin & Nails) 3 Tablets By Mouth every day. calcium-vitamin D ([place] Calcium with Vitamin D) 1 Tablets By Mouth every day. multivitamin with minerals (Multivitamin, Therapeutic w/ Minerals) 1 Tablets By Mouth every day. rosuvastatin (rosuvastatin 10 mg Tab) 1 Tablets By Mouth every day. ubiquinone (CoQ10) 400 Milligram By Mouth every day. Comment: Normal [facility] IntraOperative Documentson 0 08-10-2020 IntraOperative Documents [id number]#1.00CD :127 [facility] Main OR Preoperative Recordo n 08-10-2020 Main OR Preoperative Record PreOp Document Type FT Summary Primary Physician: Patrick Calle DO Finalized Date/Time: 08/10/20 10:10:30 Pt. Name: BREANNA WAN D.O.B./Sex: 1950 Female Med Rec #: [id number] Physician: Patrick Calle DO Financial #: [id number] Pt. Type: A Room/Bed: Admit/Disch: 08/10/20 07:24:15 - Institution: Case Times PreOp FT Pre-Care Text: Verifies consent for planned procedure, identifies individual values and wishes concerning care, includes family members in perioperative teaching Entry 1 Patient Times. In Pre Surgery 08/10/20 07:30:00 Out Pre Surgery 08/10/20 08:15:00 Outcomes Met? Yes Last Modified By: Shelley Campos RN 08/10/20 10:10:29 Post-Care Text: The patient participates in decisions affecting his or her perioperative plan of care Finalized By: Shelley Campos RN Document Signatures Signed By: Shelley Campos RN 08/10/20 10:10 Normal [facility] Outpatient Surgery Discharge Instructionon 08-10-2020 Outpatient Surgery Discharge Instruction [place] [id number] Patient Discharge Instructions PERSON INFORMATION Name: BREANNA WAN Date of : 1950 Current Date: 08/10/2020 08:10:51 PHYSICIANS Admitting Physician: Patrick Calle DO Discharge Diagnosis: Cataract BREANNA WAN has been given the following list of follow-up instructions, prescriptions, and patient education materials: PATIENT FOLLOW-UP INFORMATION Diet: Regular Call Your Doctor For: Severe pain at the operative site Wound Care Instructions: Remove dressing as instructed IF UNABLE TO CONTACT YOUR PHYSICIAN AND YOU FEEL IT IS AN EMERGENCY, GO TO THE NEAREST EMERGENCY ROOM OR CALL 911 SAVAGE Connell SALLY J, have received the attached patient education materials/instructions and have verbalized understanding: May we do a follow up call? Yes No I was present when discharge instructions were given Patient Signature Date Clinican/Nurse Signature Date Follow up: With: Address: When: Patrick Calle [facility] [place] [facility] [address], [facility] [address] [place] [address] Business (1) Within 1 to 2 days Pharmacy Information: You may receive a survey from [employer]) asking you to rate your care experience. Your feedback is important and will help us understand what we do well and how we can improve the quality of care we provide to you, your loved ones and our community. It?s an honor to serve you. Thank you for choosing [facility] HERE ARE THE MEDICATION CHANGES THAT OCCURRED DURING YOUR HOSPITAL STAY Medications to Continue with No Changes Other Medications biotin (Hair, Skin & Nails) 3 Tablets By Mouth every day. calcium-vitamin D (Seward Calcium with Vitamin D) 1 Tablets By Mouth every day. multivitamin with minerals (Multivitamin, Therapeutic w/ Minerals) 1 Tablets By Mouth every day. rosuvastatin (rosuvastatin 10 mg Tab) 1 Tablets By Mouth every day. ubiquinone (CoQ10) 400 Milligram By Mouth every day. PATIENT EDUCATION INFORMATION Instructions: [facility] Patient Education - Texton 0 08-10-2020 Patient Education - Text [facility] Progress Note-Physicianon Progress Note-Physician Patient: BREANNA WAN Age: 70 years Sex: Female : 1950 Associated Diagnoses: None Author: Patrick Calle DO Postoperative Information Date/ Time: 08/10/2020 09:39:00 Preoperative Diagnosis: Senile Cataract - OS. Postoperative Diagnosis: same . Procedure: Cataract Extraction with IOL placement - OS. Anesthesia Method: Local. Performed by: Patrick Calle DO. Specimens Removed: none . Estimated Blood Loss: 0 ml. Complications: None. Normal [facility] Comment on above: Result Comment: Elec tronically Signed By: Patrick Calle DO\.br\Date and Time Signed: 08/10/20 09:39 EST Priority Order-Yunier 2020 Priority Order-STAT Comment [facility] Comment on above: Result Comment: Rece ived Performed at: [facility] [place] [address] [employer] [facility] [place] [id number] MD Valerie Ren Performed By: #### S ARS-CoV-2, ELMO, [id number] ####[facility] [address] [place] [address] SARS-CoV-2, NAAon 08-05-2020 SARS CORONAVIRUS 2 RNA:PRTHR:PT:RESPIR ATORY:ORD:PROBE.AMP .TAR Not Detected Not Detected [facility] Comment on above: Result Comment: This nucleic acid amplification test was developed and its performance characteristics determined by [facility]. Nucleic acid amplification tests include RT-PCR and TMA. This test has not been FDA cleared or approved. This test has been authorized by FDA under an Emergency Use Authorization (EUA). This test is only authorized for the duration of time the declaration that circumstances exist justifying the authorization of the emergency use of in vitro diagnostic tests for detection of SARS-CoV-2 virus and/or diagnosis of COVID-19 infection under section 564(b)(1) of the Act, 21 U.S.C. 360bbb-3(b) (1), unless the authorization is terminated or revoked sooner. When diagnostic testing is negative, the possibility of a false negative result should be considered in the context of a patient's recent exposures and the presence of clinical signs and symptoms consistent with COVID-19. An individual without symptoms of COVID-19 and who is not shedding SARS-CoV-2 virus would expect to have a negative (not detected) result in this assay. Performed at: [employer] [place] [address] [address] [place], [place] [id number] MD Valerie Ren Performed By: #### S ARS-CoV-2, ELMO, [id number] ####[place] [address] [place] [address] Coding Summary.on 07-29-2020 Coding Summary. CODING DATE: FINAL [facility] STATUS: Home (Routine DC) PAYOR: Commercial Insurance ADMIT DX: REASON FOR VISIT DX: Z01.812 Encounter for preprocedural laboratory examination FINAL DX: PRINCIPAL: Z01.812 Encounter for preprocedural laboratory examination SECONDARY: Z20.828 Contact with and (suspected) exposure to other viral communicable diseases PYMT PROC APC STAT DESCRIPTION DOCTOR NAME DATE NOTE: The code number assigned matches the documented diagnosis and / or procedure in the patient's chart. However, the narrative phrase printed from the coding software may appear abbreviated, or result in slightly different terminology. Coded By: Scarlett Quinones CphT Date Saved: 07/29/2020 01:31 pm Normal [facility] Priority Order-Yunier 2020 Priority Order-STAT Comment [facility] Comment on above: Result Comment: Rece ived Performed at: [place] [address] [address] [place], [place] [id number] MD Valerie Ren Performed By: #### 2 [id number], SARS-CoV-2, ELMO ####[place] [address] [place] [address] SARS-CoV-2, NAAon 07-22-2020 SARS CORONAVIRUS 2 RNA:PRTHR:PT:RESPIR ATORY:ORD:PROBE.AMP .TAR Not Detected Not Detected [facility] Comment on above: Result Comment: This nucleic acid amplification test was developed and its performance characteristics determined by [facility]. Nucleic acid amplification tests include RT-PCR and TMA. This test has not been FDA cleared or approved. This test has been authorized by FDA under an Emergency Use Authorization (EUA). This test is only authorized for the duration of time the declaration that circumstances exist justifying the authorization of the emergency use of in vitro diagnostic tests for detection of SARS-CoV-2 virus and/or diagnosis of COVID-19 infection under section 564(b)(1) of the Act, 21 U.S.C. 360bbb-3(b) (1), unless the authorization is terminated or revoked sooner. When diagnostic testing is negative, the possibility of a false negative result should be considered in the context of a patient's recent exposures and the presence of clinical signs and symptoms consistent with COVID-19. An individual without symptoms of COVID-19 and who is not shedding SARS-CoV-2 virus would expect to have a negative (not detected) result in this assay. Performed at: [facility] [address] [facility] [place] [id number] MD Valerie Ren Performed By: #### 2 [id number], SARS-CoV-2, ELMO ####[facility] [address] [place] [address] Vital Signs Date Time Vital Sign Value Performing Clinician Facility 08-03-2023 08:30-0500 Body height 157.48 cm JIT [facility] Other [facility] Other 08-03-2023 08:30-0500 Body mass index (BMI) [Ratio] 33.43 kg/m2 [facility] Other [facility] Other 08-03-2023 08:30-0500 Body weight 82.92 kg JIT [facility] Other [facility] Other 08-03-2023 08:30-0500 Diastolic blood pressure 78 mm[Hg] JIT Solaire Other [facility] Other 08-03-2023 08:30-0500 Respiratory rate 12 /min JIT Sola[facility] Other [facility] Other 08-03-2023 08:30-0500 Systolic blood pressure 121 mm[Hg] Isrrael Ball Other [facility] Other 01-31-2023 08:30-0400 Body height 157.48 cm Isrrael Ball Other [facility] Other 01-31-2023 08:30-0400 Body mass index (BMI) [Ratio] 33.69 kg/m2 Isrrael Ball Other [facility] Other 01-31-2023 08:30-0400 Body weight 83.55 kg Isrrael Ball Other [facility] Other 01-31-2023 08:30-0400 Diastolic blood pressure 83 mm[Hg] Isrrael Ball Other [facility] Other 01-31-2023 08:30-0400 Respiratory rate 12 /min Isrrael Ball Other [facility] Other 01-31-2023 08:30-0400 Systolic blood pressure 148 mm[Hg] Isrrael Ball Other [facility] Other 08-21-2022 08:30-0500 Body height 157.48 cm Isrrael Ball Other [facility] Other 08-21-2022 08:30-0500 Body mass index (BMI) [Ratio] 34.71 kg/m2 Isrrael Ball Other [facility] Other 08-21-2022 08:30-0500 Body weight 86.09 kg Isrrael Ball Other [facility] Other 08-21-2022 08:30-0500 Diastolic blood pressure 80 mm[Hg] Isrrael Ball Other [facility] Other 08-21-2022 08:30-0500 Respiratory rate 12 /min Isrrael Cruz Other [facility] Other 08-21-2022 08:30-0500 Systolic blood pressure 124 mm[Hg] Isrrael Cruz Other [facility] Other Encounters Encounter Date Encounter Type Care Provider Facility Start: 08-03-2023 End: 08-03-2023 ambulatory Isrrael Cruz Other [facility] Other Start: 08-03-2023 Office outpatient vi sit 25 minutes Isrrael Cruz [facility] Start: 05-17-2023 End: 05-17-2023 ambulatory Isrrael Cruz Other [facility] Other Start: 05-17-2023 Nursing evaluation o f patient and report Isrrael Cruz [facility] Start: 02-15-2023 End: 02-15-2023 ambulatory Isrrael Cruz Other [facility] Other Start: 02-15-2023 Telephone encounter Isrrael Cruz [facility] Start: 01-31-2023 End: 01-31-2023 ambulatory Isrrael Cruz Other [facility] Other Start: 01-31-2023 Patient encounter procedure Isrrael Cruz [facility] Start: 08-21-2022 End: 08-21-2022 ambulatory Isrrael Cruz Other [facility] Other Start: 08-21-2022 Patient encounter procedure Isrrael Cruz [facility] Start: 12-08-2021 End: 12-09-[address] ISRRAEL CRZU Facility:[facility]1 Start: 09-07-2021 End: 09-08-2021 ambulatory NONE LISTED REQUEST Facility:[facility] Immunizations Immunization Date Immunization Notes Care Provider Fa cili 05-17-2023 influenza, high dose seasonal, preservative-free Isrrael Cruz Other [facility] Other 03-30-2021 influenza virus vaccine, split virus (incl. purified surface antigen) Isrrael Cruz Other [facility] Other 10-09-2020 COVID-19 Vaccine Moderna - Documentation Purposes Only Isrrael Cruz Other [facility] Other 09-11-2020 COVID-19 Vaccine Moderna - Documentation Purposes Only Isrrael Cruz Other [facility] Other 03-26-2020 influenza virus vaccine, split virus (incl. purified surface antigen) Isrrael Cruz Other [facility] Other 03-26-2019 influenza virus vaccine, split virus (incl. purified surface antigen) Isrrale Cruz Other [facility] Other 09-23-2018 pneumococcal polysaccharide vaccine, 23 valent Isrrael Cruz Other [facility] Other 03-21-2018 influenza virus vaccine, split virus (incl. purified surface antigen) Isrrael Cruz Other [facility] Other 03-21-2017 influenza virus vaccine, split virus (incl. purified surface antigen) Isrrael Cruz Other [facility] Other 03-15-2016 influenza virus vaccine, split virus (incl. purified surface antigen) Isrrael Cruz Other [facility] Other 09-17-2015 pneumococcal conjuga te vaccine, 13 valent Isrrael Cruz Other [facility] Other 03-09-2015 influenza virus vaccine, split virus (incl. purified surface antigen) Isrrael Cruz Other [facility] Other 03-26-2013 tetanus and diphther ia toxoids, adsorbed, preservative free, for adult use (5 Lf of tetanus toxoid and 2 Lf of diphtheria toxoid) Isrrael Cruz Other [facility] Other Payers Date Payer Category Payer Medicare [id number] 1960 Self-pay [id number] 1960 Unknown [id number] 1950 Unknown [id number] Unknown [id number] Social History Date Type Detail Facility Sex Assigned At [facility] Other Evaluation note 08-03-2023 Note Date & Type Note Facility 08-03-2023 Evaluation note Encounter Date Diagnosis Assessment Notes Aug, Primary hypertension (ICD-10 - I10) This patient is instructed to consume a healthy, low-fat, low-salt diet. They are also encouraged to continue exercise to achieve/maintain a normal BMI. Patient is instructed on home BP measurements: - rest for 5 minutes w/o talking.- positioned w/ feet on floor and arm supported.- average best 2/3 readings w/ goal < 135/85.- update office w/ home readings in 2 weeks. Aug, Tachycardia (ICD-10 - R00.0) Push fluids, avoid stimulants. Continue present medications Review labs: - r/o anemia - check TSH EKG to determine rhythm Aug, Hyperlipidemia, mixed (ICD-10 - E78.2) Instructed on diet and exercise with continued statin therapy.Discussed the beneficial effects of lowering cholesterol in reducing the risk for cerebrovascular and cardiovascular disease. Aug, DARLYN (generalized anxiety disorder) (ICD-10 - F41.1) Healthy diet and exercise. No medication necessary at this time. Keep active Declines treatment Aug, Nicotine dependence, cigarettes, in remission (ICD-10 - F17.211) Continue abstinence Doesn't qualify for LDCT Aug, Other obesity due to excess calories (ICD-10 - E66.09) This patient has been instructed on a low-fat, high-fiber diet. They are instructed to reduce calories, portion sizes and snacks. It is recommended that they exercise for 30 minutes, 3-5 times weekly. Aug, Body mass index [BMI] 33.0-33.9, adult (ICD-10 - Z68.33) [facility] Other Evaluation note 02-15-2023 Note Date & Type Note Facility 02-15-2023 Evaluation note Encounter Date Diagnosis Assessment Notes Jan, Primary hypertension (ICD-10 - I10) [facility] Other Evaluation note 01-31-2023 Note Date & Type Note Facility 01-31-2023 Evaluation note Encounter Date Diagnosis Assessment Notes Jan, Medicare annual wellness visit, subsequent (ICD-10 - Z00.00) Personalized health advice was given to the beneficiary including a written plan for screenings discussed and provided. Advanced care planning reviewed and/or information given as requested. Additional counseling was provided here today in regards to, [ ]. The above visit was performed by [ ], under direct supervision of [ ]. Document reviewed and amended by provider signed below. Jan, Primary hypertension (ICD-10 - I10) This patient is instructed to consume a healthy, low-fat, low-salt diet. They are also encouraged to continue exercise to achieve/maintain a normal BMI. Jan, Hyperlipidemia, mixed (ICD-10 - E78.2) Instructed on diet and exercise with continued statin therapy.Discussed the beneficial effects of lowering cholesterol in reducing the risk for cerebrovascular and cardiovascular disease. Jan, DARLYN (generalized anxiety disorder) (ICD-10 - F41.1) Healthy diet, exercise and keep active. Symptoms tolerable Jan, Nicotine dependence, cigarettes, in remission (ICD-10 - F17.211) Continue abstinence Jan, Screening mammogram for breast cancer (ICD-10 - Z12.31) Monthly SBE and yearly mammogram Jan, Menopause (ICD-10 - Z78.0) DEXA normal 3 years ago - continue Ca and Vit D supplements - continue weight bearing exercises [facility] Other Evaluation note 08-21-2022 Note Date & Type Note Facility 08-21-2022 Evaluation note Encounter Date Diagnosis Assessment Notes Aug, Hyperlipidemia, mixed (ICD-10 - E78.2) Diet and exercise with continued statin therapy. Aug, IFG (impaired fasting glucose) (ICD-10 - R73.01) Healthy diet, exercise and weight loss. Aug, Obesity (BMI 30-39.9) (ICD-10 - E66.9) This patient has been instructed on a low-fat, high-fiber diet. They are instructed to reduce calories, portion sizes and snacks. It is recommended that they exercise for 30 minutes, 3-5 times weekly. Aug, Bilateral primary osteoarthritis of knee (ICD-10 - M17.0) Keep active, exercise regularly, lose weight. Quad exercises, ice/heat and bracing. Aug, DARLYN (generalized anxiety disorder) (ICD-10 - F41.1) Healthy diet and keep active. Aug, Nicotine dependence, cigarettes, in remission (ICD-10 - F17.211) Continue abstinence [facility] Other Evaluation note Note Date & Type Note Facility Evaluation note No Information [employer] Other History general Narrative - Reported Note Date & Type Note Facility History general Narrative - Reported Type Medical History Lumbar spondylosis Medical History Allergic contact gale matitis due to plants, except food Medical History Post menopausal syndrome Medical History Bilateral primary os teoarthritis of knee Medical History Nicotine dependence, cigarettes, in remission Medical History Female stress incontinence Medical History Primary insomnia Medical History DARLYN (generalized anxiety disorde r) Medical History Hyperlipidemia, mixed Surgical History CATARACT SURG W/IOL, 1 STAGE 20 21 Surgical History COLONOSCOPY 2017 Surgical History LEXI APPENDECTOMY Surgical History CHOLECYSTECTOMY Hospitalization History SEE SURGICAL HX [facility] Other Summary Purpose Family History No Family History Records FoundNo Family History Records FoundNo Family History Records Found Advance Directives No Advanced Directives Records FoundNo Advanced Directives Records FoundNo Advanced Directives Records Found Additional Source Comments INFORMATION SOURCE (unrecogn ized section and content) DATE CREATED AUTHOR 08/19/2020 [facility] DATE CREATED AUTHOR AUTHOR'S ORGANIZ ATION 08/24/2021 [facility] DATE CREATED AUTHOR AUTHOR'S ORGANIZ ATION 12/12/2021 [facility] REASON FOR VISIT (unrecogniz ed section and content) 6 MONTH FOLLOW UPFroyKarla guevaraFLU SHOT6 month Follow up FOR RECORDS PERTAINING TO PATIENTS WHO ARE OR HAVE BEEN ENROLLED IN A CHEMICAL DEPENDENCY/SUBSTANCEABUSE PROGRAM, SOME INFORMATION MAY BE OMITTED. This clinical summary was aggregated from multiple sources. Caution should be exercised in using it in the provision of clinical care. This summary normalizes information from multiple sources, and as a consequence, information in this document may materially change the coding, format and clinical context of patient data. In addition, data may be omitted in some cases. CLINICAL DECISIONS SHOULD BE BASED ON THE PRIMARY CLINICAL RECORDS. [facility] [employer] provides no warranty or guarantee of the accuracy or completeness of information in this document.
[2024-08-27 11:22] LABS: Basophils Absolute Auto 0.1 10^3/uL (0.0-0.1); Basophils Percent Auto 0.4 % (0.2-2.0); Eosinophils Absolute Auto 0.1 10^3/uL (0.0-0.7); Eosinophils Percent Auto 0.4 % (0.9-7.0); Hemoglobin 12.9 g/dL (12.0-16.0); Immature Granulocytes Abs Auto 0.04 10^3/uL (0.00-0.03); Immature Granulocytes Pct Auto 0.3 % (0.0-0.5); Lymphocytes Absolute Auto 1.5 10^3/uL (1.2-3.8); Lymphocytes Percent Auto 12.2 % (20.5-60.0); Mean Corpuscular HGB Conc 30.7 g/dL (29.9-35.2); Mean Corpuscular Hemoglobin 23.4 pg (26.7-34.0); Mean Corpuscular Volume 76.2 fL (81.0-99.0); Mean Platelet Volume 9.1 fL (9.5-13.5); Monocytes Absolute Auto 0.8 10^3/uL (0.3-0.8); Neutrophils Absolute Auto 9.5 10^3/uL (1.4-6.5); Neutrophils Percent Auto 79.7 % (43.0-75.0); Platelet Count 460 10^3/uL (150-450); Red Blood Count 5.51 10^6/uL (4.20-5.40); Red Cell Distribution Width 18.1 % (11.0-15.0); White Blood Count 11.9 10^3/uL (4.0-11.0)
[2024-08-27 12:41] LABS: Alanine Aminotransferase 22 U/L (14-59); Albumin Globulin Ratio 0.7; Albumin Level 2.8 g/dL (3.4-5.0); Alkaline Phosphatase 352 U/L (46-116); Anion Gap 15.8; Aspartate Amino Transferase 49 U/L (15-37); BUN Creatinine Ratio 15.8; Bilirubin Total 1.5 mg/dL (0.2-1.0); Calcium 8.9 mg/dL (8.5-10.1); Carbon Dioxide 24.5 mmol/L (21.0-32.0); Chloride 99 mmol/L (98-107); Cholesterol 100 mg/dL (<=200); Estimated GFR (African America >60 (>=60 mL/min/1.73m^2); Estimated GFR (Non-African Ame >60 (>=60 mL/min/1.73m^2); Globulin 4.1 g/dL; Glucose 136 mg/dL (74-106); HDL Cholesterol 33 mg/dL (40-60); Potassium 3.3 mmol/L (3.5-5.1); Sodium 136 mmol/L (136-145); Thyroid Stimulating Hormone 13.128 uIU/mL (0.358-3.740); Total Protein 6.9 g/dL (6.4-8.2); Triglycerides 92 mg/dL (<=150); VLDL CHOLESTEROL 18.4 mg/dL
[2024-08-28 04:07] LABS: Vitamin B12 785 pg/mL (232-1245)
== END 2024-08-27 10:44 | disposition home or self-care (01) ==
LOC: LAB 10:48
PROVIDERS: PCP Internal Medicine; Visit Provider Internal Medicine
DX: E78.00 Pure hypercholesterolemia, unspecified (principal); I10 Essential (primary) hypertension; G31.84 Mild cognitive impairment of uncertain or unknown etiology; R00.0 Tachycardia, unspecified; D64.9 Anemia, unspecified; R63.4 Abnormal weight loss
CPT/HCPCS: 36415; 80053; 80061; 82607; 82746; 84443; 85025; 93005

== ENCOUNTER 2024-08-29 13:21 | Outpatient (OUT) | payer MEDICARE, OTHER, SELFPAY ==
--- NOTE | 2024-08-29 13:26 | US_ITS ---
[facility] [place] [id number] Patient Name: BREANNA WAN MRN: [id number] date: 1950 Sex: F Assigned Patient Location: US Current Patient Location: [place] Accession/Order Number: [id number] Exam Date: 08/29/2024 14:24 Report Date: 08/29/2024 14:29 At the request of: LEONARDA MCCALL DO Procedure: US right upper quadrant LIMITED RIGHT UPPER QUADRANT ABDOMINAL ULTRASOUND CLINICAL HISTORY: Elevated Liver Enzymes, Unexplained Weight Weight Loss COMPARISON: None The gallbladder is not seen and is either contracted or surgically absent. Patient is a poor historian. No intra- or extrahepatic biliary dilatation is evident. The common duct measures 3 - 4 mm. The liver appears mildly prominent. In the right hepatic lobe, there is a large ill-defined nodular area which is slightly hyperechoic measuring 8.7 x 9.3 x 7.8 cm in size. There is appropriate hepatopetal flow within the main portal vein. The pancreas shows no significant sonographic abnormality. Cursory evaluation of the right kidney reveals no hydronephrosis or fluid within Amin's pouch. A trace amount of pleural fluid on the right is not excluded. US/US right upper quadrant IMPRESSION: NONVISUALIZATION OF THE GALLBLADDER. MASSLIKE AREA WITHIN THE RIGHT HEPATIC LOBE. SINCE THERE IS NO PRIOR IMAGING FOR CORRELATION, CT FOLLOW-UP COULD BE CONSIDERED. Impression dictated by: Felicia Mayfield M.D.08/29/2024 2:29 PM Dictation Location: [place] [address] Electronically authenticated by: [id number] Y Date: 08/29/2024 14:29
--- OUTSIDE RECORDS SUMMARY | 2024-08-29 13:36 | XMS_ITS | CCD ---
Author Organization [facility] Care Team Providers Care Web Architect Name Role Phone REQUEST, DR RACHEL LISTED Admitting Unavaila ble REQUEST, DR RAMOS LISTED Attending Unavaila ble STEFANY, DR BROWER Primary Care Unavailable REQUEST, DR RAMOS LISTED Consulting Unavaila ble STEFANY, DR BROWER Admitting Unavailable BALL, DR BROWER Attending Unavailable STEFANY, DR BROWER Primary Care Unavailable STEFANY, DR BROWER Consulting Unavailable WEST, DR JESSICA Hardy Consulting Isrrael Srivastava Unavailable NO FAMILY, PHYSICIAN Primary Care Provider Unava ilable Isrrael Cruz DO Attending Provider [phone] Isrrael Cruz Attending Unavailable Isrrael Cruz Admitting Unavailable NO FAMILY, PHYSICIAN Primary Care Unavailable Allergies Allergy Classification Reported Allergen(s) Allergy Type Date of Onset Reaction(s) Facility (7 sources) ezetimibe Drug Allergy 5 Unknown, Unknown Reaction [facility] (5 sources) HMG-CoA reductase inhibitor Drug allergy Unknown [place] Other (7 sources) Simvastatin Drug Allergy 5 Unknown [facility] (3 sources) Brutcgg-KGX-NfM Reductase Inhibitor; Translations: [Eaghoxf-RIH-Wk A Reductase Inhibitor] Allergy to substance 5 unknown [facility] (1 source) ezetimibe Drug Allergy 5 [facility] Repository (1 source) Simvastatin Drug Allergy 5 [facility]ository Medications Current Medications Medication Drug Class(es) Dates Sig (Normalized) Sig (Original) bisoprolol fumarate 5 mg / hydroCHLOROthiazide 6.25 mg oral tablet (1 source) Thiazide Diuretic, beta-Adrenergic Joseph Start: 08-27-2024 take 1 tablet by mouth once daily Bisoprolol-Hydroc hlorothiazide 5-6.25 mg tablet Active 1 TAB PO Daily August 27, 2024 12:00am rosuvastatin (13 sources) HMG-CoA Reductase Inhibitor Start: 08-03-2024 Rosuvastatin 10 mg tablet Active 0 .ROUTE .COMPLEX 90 August 03, 2024 9:09am TAKE 1 TABLET EVERY EVENING Start: 02-25-2024 End: 08-03-2024 take 1 tablet by mouth once daily Rosuvastatin 10 mg tablet Discontinued 10 MG PO Daily February 25, 2024 12:48pm August 03, 2024 9:09am Start: 10-15-2023 End: 02-25-2024 Rosuvastatin 10 mg tablet Discontinued 0 .ROUTE .COMPLEX October 15, 2023 5:34pm February 25, 2024 12:48pm TAKE 1 TABLET EVERY EVENING Start: 10-15-2023 End: 10-15-2023 take 1 tablet by mouth once daily Rosuvastatin 10 mg tablet Discontinued 10 MG PO Daily October 14, 2023 11:00pm October 15, 2023 5:34pm Rosuvastatin Efrain cium 10 MG TAKE 1 (ONE) TABLET DAILY IN THE EVENING Active Triamcinolone (1 source) Corticosteroid Start: 08-27-2024 Triamcinolone Acetonide 0.1 % ointment Active 1 APPLIC TOPICAL Daily as needed for rash 454 30 August 27, 2024 12:00am apply to rash on lower extremities Completed/Discontinued Medications Medication Drug Class(es) Dates Sig (Normalized) Sig (Original) losartan potassium 25 mg oral tablet (10 sources) Angiotensin 2 Receptor Joseph Start: 02-25-2024 End: 08-27-2024 take 1 tablet by mouth once daily Losartan 25 mg tablet Discontinued 25 MG PO Daily February 25, 2024 12:48pm August 27, 2024 9:19pm Start: 12-12-2023 End: 02-25-2024 Losartan 25 mg tablet Discon tinued 0 .ROUTE .COMPLEX 90 December 12, 2023 8:12am February 25, 2024 12:48pm TAKE 1 TABLET EVERY DAY Start: 10-15-2023 End: 12-12-2023 take 1 tablet by mouth once daily Losartan 25 mg tablet Discontinued 25 MG PO Daily October 14, 2023 11:00pm December 12, 2023 8:12am Start: 01-31-2023 take 1 tablet by jaguar th every twenty-four hours Losartan Potassium 25 MG 1 tablet Orally Once a day Jan, Active Problems Problem Classification Problem Date Documented Date Episodic/Chronic Allergic reactions (5 sources) Allergic contact dermatitis due to plants, except food; Translations: [Allergic contact dermatitis due to plants, except food] Episodic Anxiety disorders (8 sources) Generalized anxiety disorder; Translations: [Generalized anxiety disorder] Chronic Cardiac dysrhythmias (6 sources) Tachycardia, unspecified; Translations: [Tachycardia] Onset: 08-27-2024 Episodic Diabetes mellitus without complication (1 source) Impaired fasting glucose Episodic Disorders of lipid metabolism (12 sources) Mixed hyperlipidemia; Translations: [Mixed hyperlipidemia] Chronic Essential hypertension (11 sources) Essential hypertension; Translations: [Essential (primary) hypertension] Chronic Genitourinary symptoms and ill-defined conditions (5 sources) Female stress incontinence; Translations: [Stress incontinence (female) (male)] Chronic Miscellaneous mental health disorders (5 sources) Primary insomnia; Translations: [Primary insomnia] Chronic Osteoarthritis (6 sources) Osteoarthritis of knee; Translations: [Bilateral primary osteoarthritis of knee] Chronic Other hereditary and degenerative nervous system conditions (2 sources) Impaired cognition; Translations: [Mild cognitive impairment, so stated] 02-25-2024 Chronic Other hereditary and degenerative nervous system conditions (2 sources) Mild cognitive impairment, so stated; Translations: [Mild cognitive impairment, so stated] 08-27-2024 Chronic Other nutritional; endocrine; and metabolic disorders [...] mass index (BMI) 33.0-33.9, adult Chronic Other nutritional; endocrine; and metabolic disorders (2 sources) Unexplained weight loss ; Translations: [Abnormal weight loss] 02-25-2024 Episodic Other nutritional; endocrine; and metabolic disorders (2 sources) Abnormal weight loss; Translations: [Loss of weight] 08-27-2024 Episodic Other screening for suspected conditions (not mental [...] unclassified (1 source) Asymptomatic menopausal state Episodic Residual codes; unclassified (1 source) Edema of lower extremity; Translations: [Localized edema] 08-27-2024 Episodic Residual codes; unclassified (1 source) Localized edema; Translations: [Edema] 08-27-2024 Episodic Spondylosis; intervertebral disc disorders; other back problems (5 sources) Lumbar spondylosis; Translations: [Spondylosis without myelopathy or radiculopathy, lumbar region] Chronic Substance-related disorders (8 sources) Tobacco user; Translations: [Nicotine dependence, cigarettes, in remission] Chronic Results Test Name Value Interpretation Reference Range Facility Basophils Auto (Bld) [#/Vol] on 08-27-2024 Basophils (Bld) [#/Vol] Automated basophil count 0.0-0.1 [facility] Basophils/100 WBC Auto (Bld) on 08-27-2024 Basophils/100 WBC (Bld) Automated basophil % 0.2-2.0 [facility] Cholesterol in LDL Calc [Mas s/Vol]on 08-27-2024 Cholesterol in LDL [Mass/Vol] Cholesterol in LDL [Mass/volume] in Serum or Plasma by calculation [facility] Comment on above: <100 mg/dl [id number] 0-129 mg/dl NEAR OR ABOVE [id number] mg/dl BORDERLINE [id number] mg/dl HIGH>190 mg/dl VERY HIGH Cholesterol in VLDL Calc [Ma ss/Vol]on 08-27-2024 Cholesterol in VLDL [Mass/Vol] Cholesterol in VLDL [Mass/volume] in Serum or Plasma by calculation [facility] Eosinophils/100 WBC Auto (Bl d)on 08-27-2024 Eosinophils/100 WBC (Bld) Automated eosinophil % Low 0.9-7.0 [facility] Erythrocyte distribution wid th Auto (RBC) [Ratio]on 08-27-2024 Erythrocyte distribution width (RBC) [Ratio] Erythrocyte distribution width [Ratio] by Automated count High 11.0-15.0 [facility] Estimated glomerular filtrat ion rate (GFR) non- Americanon 08-27-2024 GFR/1.73 sq M.predicted among non-blacks MDRD (S/P/Bld) [Vol rate/Area] Estimated glomerular filtration rate (GFR) non- >=60 mL/min/1.73m 2 [facility] Globulin Calc (S) [Mass/Vol] on 08-27-2024 Globulin (S) [Mass/Vol] Serum globulin measurement by calculation (mass/volume) [facility] Hematocrit Auto (Bld) [Volum e fraction]on 08-27-2024 Hematocrit (Bld) [Volume fraction] Hematocrit [Volume Fraction] of Blood by Automated count 36.0-48.0 [facility] Hemoglobin [Mass/volume] in Bloodon 08-27-2024 Hemoglobin (Bld) [Mass/Vol] Hemoglobin [Mass/volume] in Blood 12.0-16.0 [facility] Laboratory - Chemistry and C hemistry - challengeon 08-27-2024 Albumin [Mass/Vol] 2.8 g/dL Low 3.4-5.0 [facility] ALP [Catalytic activity/Vol] 352 U/L High 46-116 [facility] ALT [Catalytic activity/Vol] 22 U/L 14-59 [facility] AST [Catalytic activity/Vol] 49 U/L High 15-37 [facility] Bilirubin [Mass/Vol] 1.5 mg/dL High 0.2-1.0 [facility] Calcium [Mass/Vol] 8.9 mg/dL 8.5-10.1 [facility] Chloride [Moles/Vol] 99 mmol/L 98-107 [facility] Cholesterol [Mass/Vol] 100 mg/dL <=200 [facility] Cholesterol in HDL [Mass/Vol] 33 mg/dL Low 40-60 [facility] Comment on above: > or =60 mg/dl - LOW CARDIOVASCULAR RISK<40 mg/dl - HIGH CARDIOVASCULAR RISK CO2 [Moles/Vol] 24.5 mmol/L 21.0-32.0 [facility] Creatinine [Mass/Vol] 0.76 mg/dL 0.55-1.02 [facility] GFR/1.73 sq M.predicted MDRD (S/P/Bld) [Vol rate/Area] mL/min/{1.73_m2} >=60 mL/min/1.73m 2 [facility] Glucose [Mass/Vol] 136 mg/dL High 74-106 [facility] Potassium [Moles/Vol] 3.3 mmol/L Low 3.5-5.1 [facility] Protein [Mass/Vol] 6.9 g/dL 6.4-8.2 [facility] Sodium [Moles/Vol] 136 mmol/L 136-145 [facility] Triglyceride [Mass/Vol] 92 mg/dL <=150 [facility] TSH Qn 13.128 m[IU]/L High 0.358-3.740 [facility] Urea nitrogen [Mass/Vol] 12.0 mg/dL 7.0-18.0 [facility] Urea nitrogen/Creatinine [Mass ratio] 15.8 mg/mg [facility] Laboratory - Hematology and Cell countson 08-27-2024 Immature granulocytes/100 WBC (Bld) 0.3 % 0.0-0.5 [facility] Leukocytes [#/volume] correc yecenia for nucleated erythrocytes in Blood by Automated counon 08-27-2024 WBC corrected for nucl RBC Auto (Bld) [#/Vol] Leukocytes [#/volume] corrected for nucleated erythrocytes in Blood by Automated coun High 4.0-11.0 [facility] Lymphocytes Auto (Bld) [#/Vo l]on 08-27-2024 Lymphocytes (Bld) [#/Vol] Lymphocytes [#/volume] in Blood by Automated count 1.2-3.8 [facility] Lymphocytes/100 WBC Auto (Bl d)on 08-27-2024 Lymphocytes/100 WBC (Bld) Lymphocytes/100 leukocytes in Blood by Automated count Low 20.5-60.0 [facility] MCH Auto (RBC) [Entitic mass ]on 08-27-2024 MCH (RBC) [Entitic mass] MCH [Entitic mass] by Automated count Low 26.7-34.0 [facility] MCHC Auto (RBC) [Mass/Vol]on 08-27-2024 MCHC (RBC) [Mass/Vol] MCHC [Mass/volume] by Automated count 29.9-35.2 [facility] MCV Auto (RBC) [Entitic vol] on 08-27-2024 MCV (RBC) [Entitic vol] MCV [Entitic volume] by Automated count Low 81.0-99.0 [facility] Monocytes Auto (Bld) [#/Vol] on 08-27-2024 Monocytes (Bld) [#/Vol] Automated blood monocyte count 0.3-0.8 [facility] Monocytes/100 WBC Auto (Bld) on 08-27-2024 Monocytes/100 WBC (Bld) Automated monocyte % 1.7-12.0 [facility] Neutrophils Auto (Bld) [#/Vo l]on 08-27-2024 Neutrophils (Bld) [#/Vol] Neutrophils [#/volume] in Blood by Automated count High 1.4-6.5 [facility] Neutrophils/100 WBC Auto (Bl d)on 08-27-2024 Neutrophils/100 WBC (Bld) Automated neutrophil % High 43.0-75.0 [facility] No Panel Informationon 08-27 Eosinophils # (Auto) 0.1 10 3/uL 0.0-0.7 [facility] Folate 9.00 ng/mL 8.60-58.90 [facility] Immature Granulocyte # (Auto) 0.04 10 3/uL High 0.00-0.03 [facility] Platelet mean volume Auto (B ld) [Entitic vol]on 08-27-2024 Platelet mean volume (Bld) [Entitic vol] Platelet mean volume [Entitic volume] in Blood by Automated count Low 9.5-13.5 [facility] Platelets Auto (Bld) [#/Vol] on 08-27-2024 Platelets (Bld) [#/Vol] Platelets [#/volume] in Blood by Automated count High 150-450 [facility] RBC Auto (Bld) [#/Vol]on RBC (Bld) [#/Vol] Erythrocytes [#/volu me] in Blood by Automated count High 4.20-5.40 [facility] Serum or plasma albumin/glob ulin mass ratioon 08-27-2024 Albumin/Globulin [Mass ratio] Serum or plasma albumin/globulin mass ratio [facility] Serum or plasma anion gap de terminationon 08-27-2024 Anion gap [Moles/Vol] Serum or plasma anion gap determination [facility] Serum or plasma total choles terol/high density lipoprotein (HDL) cholesterol mass misael 08-27-2024 Cholesterol.total/Ch olesterol in HDL [Mass ratio] Serum or plasma total cholesterol/high density lipoprotein (HDL) cholesterol mass rat [facility] Comment on above: 3.3 - 4.4 LOW RISK4. 4 - 7.1 AVERAGE RISK7.1 - 11.0 MODERATE RISK>11.0 HIGH RISK MG MAMM SCREEN 3D GLENYS CADon 12-08-2021 MG MAMM SCREEN 3D GLENYS CAD Patient: ALICIA WAN Exam Date: 12/08/2021 : 1950 Gender:F Ordering : DR ISRRAEL CRUZ D.O. Admission #: [id number] Family : Order #: [id number] CLICK HERE TO VIEW EXAM RADIOLOGY REPORT [...] myeloma cancer at age 65. LOCATION: [facility] BREAST COMPOSITION: Heterogeneously dense,which may [...] MD on 12/09/2021 at 11:59 Normal [facility] CBC AUTO DIFFon 09-07-2021 BASO # 0.1 103/ul Normal 0.0-0.1 [facility] Comment on above: Performed By: #### D ATCBC #### [facility] [address] [place] [address] Dr. Pk Duckworth Basophils/100 WBC (Bld) 0.6 % Normal 0.2-2.0 [facility] Comment on above: Performed By: #### D ATCBC #### [facility] [address] [place] [address] Dr. Pk Duckworth EO # 0.2 103/ul Normal 0.0-0.7 [facility] Comment on above: Performed By: #### D ATCBC #### [facility] [address] [place] [address] Dr. Pk Duckworth Eosinophils/100 WBC (Bld) 2.8 % Normal 0.9-7.0 [facility] Comment on above: Performed By: #### D ATCBC #### [facility] [address] [place] [address] Dr. Pk Duckworth Erythrocyte distribution width (RBC) [Ratio] 12.3 % Normal 11.0-15.0 [facility] Comment on above: Performed By: #### D ATCBC #### [facility] [address] [place] [address] Dr. Pk Duckworth Hematocrit (Bld) [Volume fraction] 47.7 % Normal 36.0-48.0 [facility] Comment on above: Performed By: #### D ATCBC #### [facility] [address] [place] [address] Dr. Pk Duckworth Hemoglobin (Bld) [Mass/Vol] 15.6 g/dL Normal 12.0-16.0 [facility] Comment on above: Performed By: #### D ATCBC #### [facility] [address] [address] [address] Pk Duckworth IG # 0.02 10e3/ul Normal 0.00-0.03 [facility] Comment on above: Performed By: #### D ATCBC #### [facility] [address] [address] [address] Pk Duckworth IG % 0.3 % Normal 0.0-0.5 [facility] Comment on above: Performed By: #### D ATCBC #### [facility] [address] [address] [address] Pk Duckworth LYMPH # 2.4 103/ul Normal 1.2-3.8 [facility] Comment on above: Performed By: #### D ATCBC #### [facility] [address] [place] [address] Dr. Pk Duckworth Lymphocytes/100 WBC (Bld) 30.4 % Normal 20.5-60.0 [facility] Comment on above: Performed By: #### D ATCBC #### [facility] [address] [place] [address] Dr. Pk Duckworth MCH (RBC) [Entitic mass] 29.3 pg Normal 26.7-34.0 [facility] Comment on above: Performed By: #### D ATCBC #### [facility] [address] [place] [address] Dr. Pk Duckworth MCHC (RBC) [Mass/Vol] 32.7 g/dL Normal 29.9-35.2 [facility] Comment on above: Performed By: #### D ATCBC #### [facility] [address] [place] [address] Dr. Pk Duckworth MCV (RBC) [Entitic vol] 89.7 fL Normal 81.0-99.0 [facility] Comment on above: Performed By: #### D ATCBC #### [facility] [address] [address] [address] Pk Duckworth MONO # 0.4 103/ul Normal 0.3-0.8 [facility] Comment on above: Performed By: #### D ATCBC #### [facility] [address] [place] [address] Dr. Pk Duckworth Monocytes/100 WBC (Bld) 5.5 % Normal 1.7-12.0 [facility] Comment on above: Performed By: #### D ATCBC #### [facility] [address] [place] [address] Dr. Pk Duckworth NEUT # 4.8 103/ul Normal 1.4-6.5 [facility] Comment on above: Performed By: #### D ATCBC #### [facility] [address] [place] [address] Dr. Pk Duckworth Neutrophils/100 WBC (Bld) 60.4 % Normal 43.0-75.0 [facility] Comment on above: Performed By: #### D ATCBC #### [facility] [address] [place] [address] Dr. Pk Duckworth Platelet mean volume (Bld) [Entitic vol] 10.3 fL Normal 9.5-13.5 [facility] Comment on above: Performed By: #### D ATCBC #### [facility] [address] [place] [address] Dr. Pk Duckworth PLT 270 103/ul Normal 150-450 [facility] Comment on above: Performed By: #### D ATCBC #### [facility] [address] [place] [address] Dr. Pk Duckworth RBC 5.32 106/ul Normal 4.20-5.40 [facility] Comment on above: Performed By: #### D ATCBC #### [facility] [address] [place] [address] Dr. Pk Duckworth WBC 8.0 103/ul Normal 4.0-11.0 [facility] Comment on above: Performed By: #### D ATCBC #### [facility] [address] [place] [address] Dr. Pk Duckworth CAMRON- BMP WITH LIPIDon 2021 Anion gap [Moles/Vol] 11.9 mmol/L Normal [facility] Comment on above: Performed By: #### D ATBMP #### [facility] [address] [address] [address] Pk Duckworth Calcium [Mass/Vol] 9.1 mg/dL Normal 8.4-10.2 [facility] Comment on above: Performed By: #### D ATBMP #### [facility] [address] [address] [address] Pk Duckworth Chloride [Moles/Vol] 102 mmol/L Normal 98-107 [facility] Comment on above: Performed By: #### D ATBMP #### [facility] [address] [address] [address] Pk Duckworth Cholesterol [Mass/Vol] 227 mg/dL Critically high <=200 [facility] Comment on above: Performed By: #### D ATBMP #### [facility] [address] [address] [address] Pk Duckworth Cholesterol in HDL [Mass/Vol] 60 mg/dL Normal [facility] Comment on above: Performed By: #### D ATBMP #### [facility] [address] [address] [address] Pk Duckworth Cholesterol in LDL [Mass/Vol] 104.2 mg/dL Normal [facility] Comment on above: Performed By: #### D ATBMP #### [facility] [address] [address] [address] Pk Duckworth CO2 [Moles/Vol] 30.2 mmol/L Critically high 22.0-30.0 [facility] Comment on above: Performed By: #### D ATBMP #### [facility] [address] [address] [address] Pk Duckworth Creatinine [Mass/Vol] 0.71 mg/dL Normal 0.52-1.04 [facility] Comment on above: Performed By: #### D ATBMP #### [facility] [address] [address] [address] Pk Duckworth EGFR-AF BANGLADESHI >60 Normal >=60 [facility] Comment on above: Performed By: #### D ATBMP #### [facility] [address] [address] [address] Pk Duckworth EGFR-NON AF BANGLADESHI >60 Normal >=60 [facility] Comment on above: Performed By: #### D ATBMP #### [facility] [address] [address] [address] Pk Duckworth Glucose [Mass/Vol] 113 mg/dL Critically high 74-106 [facility] Comment on above: Performed By: #### D ATBMP #### [facility] [address] [address] [address] Pk Duckworth HDL NORMAL > or = 60 mg/dl - LO W CARDIOVASCULAR RISK <40 mg/dl - HIGH CARDIOVASCULAR RISK Normal [facility] Comment on above: Performed By: #### D ATBMP #### [facility] [address] [address] [address] Pk Duckworth LDL CALC NORMAL SEE BELOW Normal [facility] Comment on above: Result Comment: <100 mg/dl OPTIMAL 100 - 129 mg/dl NEAR OR ABOVE OPTIMAL 130 - 159 mg/dl BORDERLINE HIGH 160 - 189 mg/dl HIGH >190 mg/dl VERY HIGH Performed By: #### D ATBMP #### [facility] [address] [address] [address] Pk Duckworth Potassium [Moles/Vol] 4.1 mmol/L Normal 3.4-5.0 [facility] Comment on above: Performed By: #### D ATBMP #### [facility] [address] [address] [address] Pk Duckworth Sodium [Moles/Vol] 140 mmol/L Normal 137-145 [facility] Comment on above: Performed By: #### D ATBMP #### [facility] [address] [address] [address] Pk Duckworth Triglyceride [Mass/Vol] 314 mg/dL Critically high <=150 [facility] Comment on above: Performed By: #### D ATBMP #### [facility] [address] [address] [address] Pk Duckworth Urea nitrogen [Mass/Vol] 19.0 mg/dL Critically high 7.0-17.0 [facility] Comment on above: Performed By: #### D ATBMP #### [facility] [address] [address] [address] Pk Duckworth Urea nitrogen/Creatinine [Mass ratio] 26.8 mg/mg Normal [facility] Comment on above: Performed By: #### D ATBMP #### [facility] [id number] Pk Duckworth VLDL CALC 62.8 mg/dL Normal [facility] Comment on above: Performed By: #### D ATBMP #### [facility] [id number] Pk Duckworth Progress Note-Physicianon Progress Note-Physician Patient: ALICIA WAN Age: 70 years Sex: Female : [...] date 08/10/20 7:30:00 EST Documented Medications Documented [place] Calcium with Vitamin D: 1 tab(s), Oral, Daily, Prophylaxis CoQ10: 400 mg, Oral, Daily, Prophylaxis Multivitamin, Therapeutic w/ Minerals: 1 tab(s), Oral, Daily, Prophylaxis rosuvastatin 10 mg Tab: 10 mg = 1 tab(s), Oral, Daily, Prophylaxis, Home Medications (4) Active [place] Calcium with Vitamin D 1 tab(s), Oral, [...] Results review: No qualifying data available . [facility] Comment on above: Result Comment: Elec tronically Signed By: Jose M Jones CRNA [employer] 0 08-13-2020 [employer] [id number] CD:127 Normal [facility] Coding Summary.on 08-12-2020 Coding Summary. CODING DATE: FINAL [facility] STATUS: Home (Routine DC) PAYOR: Commercial Insurance [...] CphT Date Saved: 08/12/2020 08:05 pm Normal [facility] Coding Summary. CODING DATE: FINAL [facility] STATUS: Home (Routine DC) PAYOR: Medicare APC DESCRIPTION 5491 Level 1 Intraocular Procedures ADMIT DX: REASON FOR VISIT DX: H25.13 Age-related nuclear cataract, bilateral FINAL DX: PRINCIPAL: H25.13 Age-related nuclear cataract, bilateral SECONDARY: E78.00 Pure hypercholesterolemia, unspecified PYMT PROC APC STAT DESCRIPTION DOCTOR NAME DATE 74120 5491 J1 Extracapsular cataract Patrick Calle DO [...] [place] Revised Date Saved: 08/11/2020 01:53 pm [facility] Main OR Intraoperative Recor don 02-11-2021 Main OR Intraoperative Record IntraOp Document Type FT Summary Primary Physician: Patrick Calle DO Finalized Date/Time: 08/12/20 13:24:28 Pt. Name: SAVAGE ALICIA Alex Woods/Sex: 1950 Female Med Rec #: [id number] Physician: Patrick Calle DO Financial #: [id number] Pt. Type: A Room/Bed: [place] [address] Admit/Disch: 08/10/20 07:24:15 - 08/10/20 10:30:00 Institution: Case Times FT Entry 1 Patient Times In Room 08/10/20 09:20:00 Out Room 08/10/20 09:38:00 Procedure Times Start 08/10/20 09:25:00 Stop 08/10/20 09:37:00 Anesthesia Times Last Modified By: Huey MURILLO, Viviane Johnson 08/10/20 09:37:47 General Comments: 08/12/2020 - chart logged and finalized for charges. Dwayne Pascual, MSN, RN Case Attendance FT Entry 1 Entry 2 Entry 3 Case Attendee Patrick Calle DO RN, Felicia Garcia RN Role Performed Surgeon - Primary Trashman - Primary Trashman - Primary Time In 08/10/20 09:20:00 08/10/20 09:20:00 08/10/20 09:20:00 Time Out 08/10/20 09:38:00 08/10/20 09:38:00 08/10/20 09:38:00 Procedure CATARACT EXTRACTION W/ CATARACT EXTRACTION W/ CATARACT EXTRACTION W/ INTRAOCULAR LENS(Left) INTRAOCULAR LENS(Left) INTRAOCULAR LENS(Left) Comments Last Modified By: Huey RN, Viviane Arzate RN, Viviane Arzate RN, Viviane Johnson 08/10/20 09:37:49 08/10/20 09:37:49 08/10/20 09:37:49 Entry 4 Entry 5 Case Attendee Lamar HARO/Criss DANIELSON Rachel L Role Performed Scrub - Primary Staff - Other Time In 08/10/20 09:20:00 08/10/20 09:20:00 Time Out 08/10/20 09:38:00 08/10/20 09:38:00 Procedure CATARACT EXTRACTION W/ CATARACT EXTRACTION W/ INTRAOCULAR LENS(Left) INTRAOCULAR LENS(Left) Comments Last Modified By: Viviane Arzate RN, RN, Amy J 08/10/20 09:37:49 08/10/20 09:37:49 Perioperative Protocols FT [...] Antibiotic No Time Out Patrick Calle DO, Given Participants Viviane Arzate RN, Zurod MURILLO, Lamar Appiah PROJECT MANAGEMENT PROFESSOR/Criss DANIELSON Time Out Complete 08/10/20 09:23:00 Outcomes Met? [...] Procedure Yes Primary Surgeon Patrick Calle DO Start 08/10/20 09:25:00 Stop 08/10/20 09:37:00 Anesthesia Type [...] Last Modified By: Viviane Arzate RN, RN, Amy J Crosby RN, Amy J 08/10/20 07:58:10 08/10/20 07:58:10 08/10/20 07:58:10 Post-Care [...] Items Instruments Status Correct By Lamar HARO/Criss DNAIELSON Outcomes Met? Yes Last Modified By: Viviane [...] FT Description LILO [id number] 12.50MM Serial Number [id number] 22.00 [[id number]][F] Lot Number [id number] Multiple Needle Stitcher FT-BAUSCH [employer] LOMB Catalog ?# [id number] [F] Size 22.0 Expiration Date 01/29/23 Unique Device [id number] Identifier (FLAKITA) Human Readable {[id number] Machine Readable [id number] Barcode Barcode Usage Data FT Implant Site [...] SONIA Pascual RN, Andrea 08/12/20 13:24 [facility] Operative Reporton Operative Report Date of [...] care. Patrick Calle D.O. gls Dictated: 08/10/2020 #[id number] Typed: 08/11/2020 #[id number] cc: Patrick Calle D.O. [facility] Comment on above: Result Comment: Elec tronically Signed By: Patrick Calle DO\.br\Date and Time Signed: 08/12/20 14:09 EST Discharge Instructionson Discharge Instructions [id number]#1.00 CD:127 [facility] IntraOperative Documentson 0 08-11-2020 IntraOperative Documents [id number]#1.00 CD:127 [facility] Preoperative Documentson Preoperative Documents [id number]#1.00 CD:127 [facility] Consent for Procedure/Surger yon 08-10-2020 Consent for Procedure/Surgery [id number]#1.00 CD:127 [facility] Consent for Treatmenton Consent for Treatment [id number]#1.00C D:127 [facility] History and Physicalon 08-10 History and Physical [...] living. Patrick Calle D.O. gls Dictated: 08/09/2020 #[id number] Typed 08/10/2020 #[id number] cc: Patrick Calle D.O. [facility] Comment on above: Result Comment: Elec tronically Signed By: Patrick Calle DO\.br\Date and Time Signed: 08/10/20 08:05 EST Inpatient Patient Summaryon 08-10-2020 Inpatient Patient Summary [address] [address] [facility] Clinical Discharge Instructions PERSON INFORMATION Name: ALICIA WAN PHYSICIANS Admitting Physician: Patrick Calle DO Attending Physician: Patrick Calle DO PCP: ISRRAEL CRUZ DO Discharge Diagnosis: Cataract Comment: PATIENT EDUCATION INFORMATION Instructions: Medication Leaflets: Follow up: With: Address: When: Patrick Calle [facility] [address] [phone] Business (1) Within 1 to 2 days MEDICATION LIST Medications to Continue with No Changes Other Medications biotin (Hair, Skin & Nails) 3 Tablets By Mouth every day. calcium-vitamin D ([place] Calcium with Vitamin D) 1 Tablets By Mouth every day. multivitamin with minerals (Multivitamin, Therapeutic w/ Minerals) 1 Tablets By Mouth every day. rosuvastatin (rosuvastatin 10 mg Tab) 1 Tablets By Mouth every day. ubiquinone (CoQ10) 400 Milligram By Mouth every day. Comment: [facility] IntraOperative Documentson 0 08-10-2020 IntraOperative Documents [id number]#1.00 CD:127 [facility] Main OR Preoperative Recordo n 08-10-2020 Main OR Preoperative Record PreOp Document Type FT Summary Primary Physician: Patrick Calle DO Finalized Date/Time: 08/10/20 10:10:30 Pt. Name: ALICIA WAN./Sex: 1950 Female Med Rec #: [id number] Physician: Patrick Calle DO Financial #: [id number] Pt. Type: A Room/Bed: [facility] Admit/Disch: 08/10/20 07:24:15 - Institution: Case Times [...] By: Shelley Campos RN 08/10/20 10:10 [facility] Outpatient Surgery Discharge Instructionon 08-10-2020 Outpatient Surgery Discharge Instruction [place] [id number] Patient Discharge Instructions PERSON INFORMATION Name: ALICIA WAN Date of : 1950 Current Date: 08/10/2020 08:10:51 PHYSICIANS Admitting Physician: Patrick Calle DO Discharge Diagnosis: Cataract ALICIA WAN has been given the following list of follow-up instructions, prescriptions, and patient education materials: PATIENT FOLLOW-UP INFORMATION Diet: Regular Call Your Doctor For: Severe pain at the operative site Wound Care Instructions: Remove dressing as instructed IF UNABLE TO CONTACT YOUR PHYSICIAN AND YOU FEEL IT IS AN EMERGENCY, GO TO THE NEAREST EMERGENCY ROOM OR CALL 911 ISAVAGE SALLY J, have received the attached patient education materials/instructions and have verbalized understanding: May we do a follow up call? Yes No I was present when discharge instructions were given Patient Signature Date Clinican/Nurse Signature _ Date Follow up: With: Address: When: Patrick Calle [facility] 3, [address], [address] [address] Business (1) Within 1 to 2 days Pharmacy Information: You may receive a survey from [facility] asking you to rate your care experience. Your feedback is important and will help us understand what we do well and how we can improve the quality of care we provide to you, your loved ones and our community. It?s an honor to serve you. Thank you for choosing [facility] HERE ARE THE MEDICATION CHANGES THAT OCCURRED DURING YOUR HOSPITAL STAY Medications to Continue with No Changes Other Medications biotin (Hair, Skin & Nails) 3 Tablets By Mouth every day. calcium-vitamin D ([place] Calcium with Vitamin D) 1 Tablets By Mouth every day. multivitamin with minerals (Multivitamin, Therapeutic w/ Minerals) 1 Tablets By Mouth every day. rosuvastatin (rosuvastatin 10 mg Tab) 1 Tablets By Mouth every day. ubiquinone (CoQ10) 400 Milligram By Mouth every day. PATIENT EDUCATION INFORMATION Instructions: [facility] Patient Education - Texton 0 08-10-2020 Patient Education - Text [facility] Progress Note-Physicianon Progress Note-Physician Patient: ALICIA WAN Age: 70 years Sex: Female : 1950 Associated Diagnoses: None Author: Patrick Calle DO Postoperative Information Date/ Time: 08/10/2020 09:39:00 Preoperative Diagnosis: Senile Cataract - OS. Postoperative Diagnosis: same . Procedure: Cataract Extraction with IOL placement - OS. Anesthesia Method: Local. Performed by: Patrick Calle DO. Specimens Removed: none . Estimated Blood Loss: 0 ml. Complications: None. [facility] Comment on above: Result Comment: Elec tronically Signed By: Patrick Calle DO\.br\Date and Time Signed: 08/10/20 09:39 EST Priority Order-Yunier 2020 Priority Order-STAT Comment [facility] Comment on above: Result Comment: Rece ived Performed at: [facility] [address] [facility], [place] [id number] MD Valerie Ren Performed By: #### S ARS-CoV-2, ELMO, [id number] ####[facility] [address] [place] [address] SARS-CoV-2, NAAon 08-05-2020 SARS CORONAVIRUS 2 RNA:PRTHR:PT:RESPIRA TORY:ORD:PROBE.AMP.T AR Not Detected Not Detected [facility] Comment on above: Result Comment: This nucleic acid amplification test was developed and its performance characteristics determined by [employer]. Nucleic acid amplification tests include RT-PCR and [...] detected) result in this assay. Performed at: [facility] [address] [facility] [place] [id number] MD Valerie Ren Performed By: #### S ARS-CoV-2, ELMO, [id number] ####[facility] [address] [place] [address] Coding Summary.on 07-29-2020 Coding Summary. CODING DATE: 021 FINAL [facility] STATUS: Home (Routine DC) PAYOR: Commercial Insurance [...] CphT Date Saved: 07/29/2020 01:31 pm [facility] Priority Order-Yunier 2020 Priority Order-STAT Comment [facility] Comment on above: Result Comment: Rece ived Performed at: [facility] [address] [place], [place] [id number] MD Valerie Ren Performed By: #### 2 [id number], SARS-CoV-2, ELMO ####[facility] [address] [place] [address] SARS-CoV-2, NAAon 07-22-2020 SARS CORONAVIRUS 2 RNA:PRTHR:PT:RESPIRA TORY:ORD:PROBE.AMP.T AR Not Detected Not Detected [facility] Comment on above: Result Comment: This nucleic acid amplification test was developed and its performance characteristics determined by [employer]. Nucleic acid amplification tests include RT-PCR and [...] detected) result in this assay. Performed at: [facility] [address] [facility] [place] [id number] MD Valerie Ren Performed By: #### 2 [id number], SARS-CoV-2, ELMO ####[facility] [address] [place] [address] Vital Signs Date Time Vital Sign Value Performing Clinician Facility 08-27-2024 10:09-0500 Body height 157.48 cm PHYSICIAN NO [facility] 08-27-2024 10:09-0500 Body mass index (BMI) [Ratio] 28.1 kg/m2 PHYSICIAN NO [facility] 08-27-2024 10:09-0500 Body weight 69.85 kg PHYSICIAN NO [facility] 08-27-2024 10:09-0500 Diastolic blood pressure 82 mm[Hg] PHYSICIAN NO [facility] 08-27-2024 10:09-0500 Heart rate 123 /min PHYSICIAN NO [facility] 08-27-2024 10:09-0500 Respiratory rate 12 /min PHYSICIAN NO [facility] 08-27-2024 10:09-0500 Systolic blood pressure 125 mm[Hg] PHYSICIAN NO [facility] 08-03-2023 08:30-0500 Body height 157.48 cm Isrrael Ball Other [facility] Other 08-03-2023 08:30-0500 Body mass index (BMI) [Ratio] 33.43 kg/m2 Isrrael Ball Other [facility] Other 08-03-2023 08:30-0500 Body weight 82.92 kg Isrrael Ball Other [facility] Other 08-03-2023 08:30-0500 Diastolic blood pressure 78 mm[Hg] Isrrael Ball Other [facility] Other 08-03-2023 08:30-0500 Respiratory rate 12 /min Isrrael Ball Other [facility] Other 08-03-2023 08:30-0500 Systolic blood pressure 121 mm[Hg] Isrrael Ball Other [facility] Other 01-31-2023 08:30-0400 Body height 157.48 cm Isrrael Ball Other [facility] Other 01-31-2023 08:30-0400 Body mass index (BMI) [Ratio] 33.69 kg/m2 Isrrael Ball Other [facility] Other 01-31-2023 08:30-0400 Body weight 83.55 kg Isrrael Ball Other [facility] Other 01-31-2023 08:30-0400 Diastolic blood pressure 83 mm[Hg] Isrrael Ball Other [facility] Other 01-31-2023 08:30-0400 Respiratory rate 12 /min Isrrael Ball Other [facility] Other 01-31-2023 08:30-0400 Systolic blood pressure 148 mm[Hg] Isrrael Ball Other [facility] Other 08-21-2022 08:30-0500 Body height 157.48 cm Isrrael Ball Other [facility] Other 08-21-2022 08:30-0500 Body mass index (BMI) [Ratio] 34.71 kg/m2 Isrrael Ball Other [facility] Other 08-21-2022 08:30-0500 Body weight 86.09 kg Isrrael Ball Other [facility] Other 08-21-2022 08:30-0500 Diastolic blood pressure 80 mm[Hg] Isrrael Ball Other [facility] Other 08-21-2022 08:30-0500 Respiratory rate 12 /min Isrrael Ball Other [facility] Other 08-21-2022 08:30-0500 Systolic blood pressure 124 mm[Hg] Isrrael Ball Other [facility] Other Encounters Encounter Date Encounter Type Care Provider Facility Start: 08-27-2024 End: 08-27-2024 ambulatory PHYSICIAN RIKA [facility] Work Phone: Start: 08-27-2024 End: 08-27-2024 Patient encounter procedure PHYSICIAN NO [facility] Work Phone: Start: 08-03-2023 End: 08-03-2023 ambulatory Isrrael Cruz Other [facility] Other Start: 08-03-2023 Office outpatient visit 25 minutes Isrrael Cruz [facility] Start: 05-17-2023 End: 05-17-2023 ambulatory Isrrael Cruz Other [facility] Other Start: 05-17-2023 Nursing evaluation o f patient and report Isrrael Cruz [facility] Start: 02-15-2023 End: 02-15-2023 ambulatory Isrrael Cruz Other [facility] Other Start: 02-15-2023 Telephone encounter Isrrael Cruz [facility] Start: 01-31-2023 End: 01-31-2023 ambulatory Isrrael Cruz Other [facility] Other Start: 01-31-2023 Patient encounter procedure Isrrael Cruz [facility] Start: 08-21-2022 End: 08-21-2022 ambulatory Isrrael Cruz Other [facility] Other Start: 08-21-2022 Patient encounter procedure Isrrael Cruz [facility] Start: 12-08-2021 End: 12-09-[address] ISRRAEL CRUZ Facility:[facility]1 Start: 09-07-2021 End: 09-08-2021 ambulatory NONE LISTED REQUEST Facility:[facility] Plan of Treatment Date Care Activity Detail Author Start: 08-27-2024 EKG 12 channel panel [facility] Immunizations Immunization Date Immunization Notes Care Provider Catherine harris 03-27-2024 influenza, high dose seasonal, preservative-free PHYSICIAN NO [facility] 05-17-2023 influenza virus vaccine, unspecified formulation PHYSICIAN NO [facility] 05-17-2023 influenza, high dose seasonal, preservative-free Isrrael Cruz Other [facility] Other 03-30-2021 influenza virus vaccine, split virus (incl. purified surface antigen) Isrrael Cruz Other [facility] Other 03-30-2021 influenza virus vaccine, unspecified formulation PHYSICIAN NO [facility] 10-09-2020 COVID-19 Vaccine Moderna - Documentation Purposes Only Isrrael Cruz Other [facility] 09-11-2020 COVID-19 Vaccine Moderna - Documentation Purposes Only Isrrael Cruz Other [facility] 03-26-2020 influenza virus vaccine, split virus (incl. purified surface antigen) Isrrael Cruz Other [facility] Other 03-26-2020 influenza virus vaccine, unspecified formulation PHYSICIAN NO [facility] 03-26-2019 influenza virus vaccine, split virus (incl. purified surface antigen) Isrrael Cruz Other [facility] Other 03-26-2019 influenza virus vaccine, unspecified formulation PHYSICIAN NO [facility] 09-23-2018 pneumococcal polysaccharide vaccine, 23 valent Isrrael Cruz Other [facility] 03-21-2018 influenza virus vaccine, split virus (incl. purified surface antigen) Isrrael Cruz Other [facility] Other 03-21-2018 influenza virus vaccine, unspecified formulation PHYSICIAN NO [facility] 03-21-2017 influenza virus vaccine, split virus (incl. purified surface antigen) Isrrael Cruz Other [facility] Other 03-21-2017 influenza virus vaccine, unspecified formulation PHYSICIAN NO [facility] 03-15-2016 influenza virus vaccine, split virus (incl. purified surface antigen) Isrrael Cruz Other [facility] Other 03-15-2016 influenza virus vaccine, unspecified formulation PHYSICIAN NO [facility] 09-17-2015 pneumococcal conjuga te vaccine, 13 valent Isrrael Cruz Other [facility] 03-09-2015 influenza virus vaccine, split virus (incl. purified surface antigen) Isrrael Cruz Other [facility] Other 03-09-2015 influenza virus vaccine, unspecified formulation PHYSICIAN NO [facility] 03-26-2013 tetanus and diphther ia toxoids, adsorbed, preservative free, for adult use (5 Lf of tetanus toxoid and 2 Lf of diphtheria toxoid) Isrrael Cruz Other [facility] Payers Date Payer Category Payer Self-pay 1960 Medicare [id number] 1960 Self-pay [id number] 1960 Unknown [id number] 1950 Unknown [id number] Private Health Insurance [facility] [id number] Unknown [id number] Unknown [id number] Social History Date Type Detail Facility Sex Assigned At [facility] Other Start: 02-25-[address] [facility] Never smoked tobacco (finding) [facility] Start: 08-27-2024 End: 08-28-2024 Sex Female (finding) [facility] Start: 1950 Sex Assigned At Female F [facility] Evaluation note 08-27-2024 Note Date & Type Note Facility 08-27-2024 Evaluation note Diagnosis Onset Date Resolution Hypercholesterolemia acute Febr uary 2024 9:44am Hypertension acute August 9:44am Lower extremity edema acute Feb ruary 2024 9:44am MCI (mild cognitive impairment) acute August 27, 2024 9:44am Tachycardia acute August 9:44am Unexplained weight loss acute F ebruary 2024 9:44am [facility] Work Phone: Evaluation note 08-03-2023 Note Date & Type [...] index [BMI] 33.0-33.9, adult (ICD-10 - Z68.33) [facility] Other Evaluation note 02-15-2023 Note Date & Type Note Facility 02-15-2023 Evaluation note Encounter Date Diagnosis Assessment Notes Jan, Primary hypertension (ICD-10 - I10) [facility] Other Evaluation note 01-31-2023 Note Date & [...] D supplements - continue weight bearing exercises [facility] Other Evaluation note 08-21-2022 Note Date & [...] in remission (ICD-10 - F17.211) Continue abstinence [facility] Other Evaluation note Note Date & Type Note Facility Evaluation note No Information [facility] Other Evaluation note Note Date & Type Note Facility Evaluation note Diagnosis Onset Date Resolution Hypercholesterolemia acute Febr uary 2024 9:44am Hypertension acute August 9:44am MCI (mild cognitive impairment) acute August 27, 2024 9:44am Tachycardia acute August 9:44am Unexplained weight loss acute F ebruary 2024 9:44am [facility] Work Phone: History general Narrative - Reported Note Date [...] History CHOLECYSTECTOMY Hospitalization History SEE SURGICAL HX [facility] Other Summary Purpose Family History No Family History Records FoundNo Family History Records FoundNo Family History Records Found Advance Directives No Advanced Directives Records Found Advance Directive Response Recorded Date/ Time Advance Directives No August 03, 2023 9:35am Chief Complaint and Reason for Visit Chief Complaint Admit Date 6 month f/u August 27, 2024 9:44am Reason for Visit Admit Date Hypercholesterolemia August 27, 2024 9:44am Hypertension August 27, 2024 9:44am MCI (mild cognitive impairment) August 27, 2024 9:44am Tachycardia August 27, 2024 9:44am Unexplained weight loss August 27 9:44am Chief Complaint Admit Date 6 month f/u August 27, 2024 9:44am R00.0 August 27, 2024 10:29am Reason for Visit Admit Date Hypercholesterolemia August 27, 2024 9:44am Hypertension August 27, 2024 9:44am Lower extremity edema August 27 9:44am MCI (mild cognitive impairment) August 27, 2024 9:44am Tachycardia August 27, 2024 9:44am Unexplained weight loss August 27 9:44am Additional Source Comments INFORMATION SOURCE (unrecogn ized section and content) DATE CREATED AUTHOR 08/19/2020 [facility] DATE CREATED AUTHOR AUTHOR'S ORGANIZ ATION 12/12/2021 [facility] DATE CREATED AUTHOR AUTHOR'S ORGANIZ ATION 08/29/2024 [facility] REASON FOR VISIT (unrecogniz ed section and content) 6 MONTH FOLLOW UPRoberts ryderanFLU SHOT6 month Follow up Care Teams (unrecognized sec tion and content) Team Status: Active Member Role Status Dates PHYSICIAN NO FAMILY Primary Care Provider Active Team Status: Inactive Member Role Status Dates PHYSICIAN NO FAMILY Primary Care Provider Active Start: August 27, 2024 End: August 27, 2024 Isrrael Cruz DO Attending Provider Active Sta rt: August 27, 2024 End: August 27, 2024 Team Status: Active Member Role Status Dates PHYSICIAN NO FAMILY Primary Care Provider Active Start: August 27, 2024 Isrrael Cruz DO Attending Provider Active Sta rt: August 27, 2024 Goals (unrecognized section and content) Goals may be documented in a n alternate section FOR RECORDS PERTAINING TO PATIENTS WHO ARE [...] BE BASED ON THE PRIMARY CLINICAL RECORDS. [facility]. provides no warranty or guarantee of the accuracy or completeness of information in this document.
== END 2024-08-29 13:22 | disposition home or self-care (01) ==
LOC: US 13:21
PROVIDERS: PCP Internal Medicine; Visit Provider Internal Medicine
DX: R74.8 Abnormal levels of other serum enzymes (principal); R63.4 Abnormal weight loss; R16.0 Hepatomegaly, not elsewhere classified
CPT/HCPCS: 76705

== ENCOUNTER 2024-09-01 19:09 | Emergency (ER) | payer MEDICARE, OTHER, SELFPAY ==
[2024-09-01] VITALS (21 sets, daily range): BP systolic 123–149; BP diastolic 72–95; PULSE 86–94; TEMP 36.5; O2SAT 91–100; BMI 25.6
--- OUTSIDE RECORDS SUMMARY | 2024-09-01 19:21 | XMS_ITS | CCD ---
Author Organization [facility] Care Team Providers Care Loading And Unloading Supervisor Name Role Phone REQUEST, DR RACHEL LISTED [...] Unava ilable Isrrael Cruz DO Attending Provider Isrrael Cruz Attending Unavailable Isrrael Cruz Admitting Unavailable NO FAMILY, PHYSICIAN Primary Care Unavailable Allergies Allergy Classification Reported Allergen(s) Allergy Type Date of Onset Reaction(s) Facility (7 sources) ezetimibe Drug Allergy 5 Unknown, Unknown Reaction [facility] (5 sources) HMG-CoA reductase inhibitor Drug allergy Unknown [employer] Other (7 sources) Simvastatin Drug Allergy 5 Unknown [facility] (3 sources) Icokmgv-RHL-CbH Reductase Inhibitor; Translations: [Jicynhg-PRA-Mi A Reductase Inhibitor] Allergy to substance 5 unknown [facility] (1 source) ezetimibe Drug Allergy 5 [facility] (1 source) Simvastatin Drug Allergy 5 [facility] Medications Current Medications Medication Drug Class(es) [...] Basophils (Bld) [#/Vol] Automated basophil count 0.0-0.1 [facility] Basophils/100 WBC Auto (Bld) on 08-27-2024 Basophils/100 WBC (Bld) Automated basophil % 0.2-2.0 [facility] Cholesterol in LDL Calc [Mas s/Vol]on 08-27-2024 Cholesterol in LDL [Mass/Vol] Cholesterol in LDL [Mass/volume] in Serum or Plasma by calculation [facility] Comment on above: <100 mg/dl [id number] 0-129 mg/dl NEAR OR ABOVE EXCHAZY728-510 mg/dl BORDERLINE IPHC263-757 mg/dl HIGH>190 mg/dl VERY HIGH Cholesterol in VLDL Calc [Ma ss/Vol]on 08-27-2024 Cholesterol in VLDL [Mass/Vol] Cholesterol in VLDL [Mass/volume] in Serum or Plasma by calculation [facility] Eosinophils/100 WBC Auto (Bl d)on 08-27-2024 Eosinophils/100 WBC (Bld) Automated eosinophil % Low 0.9-7.0 [facility] Erythrocyte distribution wid th Auto (RBC) [Ratio]on 08-27-2024 Erythrocyte distribution width (RBC) [Ratio] Erythrocyte distribution width [Ratio] by Automated count High 11.0-15.0 [facility] Estimated glomerular filtrat ion rate (GFR) non- Americanon 08-27-2024 GFR/1.73 sq M.predicted among non-blacks MDRD (S/P/Bld) [Vol rate/Area] Estimated glomerular filtration rate (GFR) non- >=60 mL/min/1.73m 2 [facility] Globulin Calc (S) [Mass/Vol] on 08-27-2024 Globulin (S) [Mass/Vol] Serum globulin measurement by calculation (mass/volume) [facility] Hematocrit Auto (Bld) [Volum e fraction]on 08-27-2024 Hematocrit (Bld) [Volume fraction] Hematocrit [Volume Fraction] of Blood by Automated count 36.0-48.0 [facility] Hemoglobin [Mass/volume] in Bloodon 08-27-2024 Hemoglobin (Bld) [Mass/Vol] Hemoglobin [Mass/volume] in Blood 12.0-16.0 [facility] Laboratory - Chemistry and C hemistry - challengeon 08-27-2024 Albumin [Mass/Vol] 2.8 g/dL Low 3.4-5.0 [facility] ALP [Catalytic activity/Vol] 352 U/L High 46-116 [facility] ALT [Catalytic activity/Vol] 22 U/L 14-59 [facility] AST [Catalytic activity/Vol] 49 U/L High 15-37 [facility] Bilirubin [Mass/Vol] 1.5 mg/dL High 0.2-1.0 [facility] Calcium [Mass/Vol] 8.9 mg/dL 8.5-10.1 [facility] Chloride [Moles/Vol] 99 mmol/L 98-107 [facility] Cholesterol [Mass/Vol] 100 mg/dL <=200 [facility] Cholesterol in HDL [Mass/Vol] 33 mg/dL Low 40-60 [facility] Comment on above: > or =60 mg/dl - LOW CARDIOVASCULAR RISK<40 mg/dl - HIGH CARDIOVASCULAR RISK CO2 [Moles/Vol] 24.5 mmol/L 21.0-32.0 [facility] Creatinine [Mass/Vol] 0.76 mg/dL 0.55-1.02 [facility] GFR/1.73 sq M.predicted MDRD (S/P/Bld) [Vol rate/Area] mL/min/{1.73_m2} >=60 mL/min/1.73m 2 [facility] Glucose [Mass/Vol] 136 mg/dL High 74-106 [facility] Potassium [Moles/Vol] 3.3 mmol/L Low 3.5-5.1 [facility] Protein [Mass/Vol] 6.9 g/dL 6.4-8.2 [facility] Sodium [Moles/Vol] 136 mmol/L 136-145 [facility] Triglyceride [Mass/Vol] 92 mg/dL <=150 [facility] TSH Qn 13.128 m[IU]/L High 0.358-3.740 [facility] Urea nitrogen [Mass/Vol] 12.0 mg/dL 7.0-18.0 [facility] Urea nitrogen/Creatinine [Mass ratio] 15.8 mg/mg [facility] Laboratory - Hematology and Cell countson 08-27-2024 Immature granulocytes/100 WBC (Bld) 0.3 % 0.0-0.5 [facility] Leukocytes [#/volume] correc yecenia for nucleated erythrocytes in Blood by Automated counon 08-27-2024 WBC corrected for nucl RBC Auto (Bld) [#/Vol] Leukocytes [#/volume] corrected for nucleated erythrocytes in Blood by Automated coun High 4.0-11.0 [facility] Lymphocytes Auto (Bld) [#/Vo l]on 08-27-2024 Lymphocytes (Bld) [#/Vol] Lymphocytes [#/volume] in Blood by Automated count 1.2-3.8 [facility] Lymphocytes/100 WBC Auto (Bl d)on 08-27-2024 Lymphocytes/100 WBC (Bld) Lymphocytes/100 leukocytes in Blood by Automated count Low 20.5-60.0 [facility] MCH Auto (RBC) [Entitic mass ]on 08-27-2024 MCH (RBC) [Entitic mass] MCH [Entitic mass] by Automated count Low 26.7-34.0 [facility] MCHC Auto (RBC) [Mass/Vol]on 08-27-2024 MCHC (RBC) [Mass/Vol] MCHC [Mass/volume] by Automated count 29.9-35.2 [facility] MCV Auto (RBC) [Entitic vol] on 08-27-2024 MCV (RBC) [Entitic vol] MCV [Entitic volume] by Automated count Low 81.0-99.0 [facility] Monocytes Auto (Bld) [#/Vol] on 08-27-2024 Monocytes (Bld) [#/Vol] Automated blood monocyte count 0.3-0.8 [facility] Monocytes/100 WBC Auto (Bld) on 08-27-2024 Monocytes/100 WBC (Bld) Automated monocyte % 1.7-12.0 [facility] Neutrophils Auto (Bld) [#/Vo l]on 08-27-2024 Neutrophils (Bld) [#/Vol] Neutrophils [#/volume] in Blood by Automated count High 1.4-6.5 [facility] Neutrophils/100 WBC Auto (Bl d)on 08-27-2024 Neutrophils/100 WBC (Bld) Automated neutrophil % High 43.0-75.0 [facility] No Panel Informationon 08-27 Eosinophils # (Auto) 0.1 10 3/uL 0.0-0.7 [facility] Folate 9.00 ng/mL 8.60-58.90 [facility] Immature Granulocyte # (Auto) 0.04 10 3/uL High 0.00-0.03 [facility] Platelet mean volume Auto (B ld) [Entitic vol]on 08-27-2024 Platelet mean volume (Bld) [Entitic vol] Platelet mean volume [Entitic volume] in Blood by Automated count Low 9.5-13.5 [facility] Platelets Auto (Bld) [#/Vol] on 08-27-2024 Platelets (Bld) [#/Vol] Platelets [#/volume] in Blood by Automated count High 150-450 [facility] RBC Auto (Bld) [#/Vol]on RBC (Bld) [#/Vol] Erythrocytes [#/volu me] in Blood by Automated count High 4.20-5.40 [facility] Serum or plasma albumin/glob ulin mass ratioon 08-27-2024 Albumin/Globulin [Mass ratio] Serum or plasma albumin/globulin mass ratio [facility] Serum or plasma anion gap de terminationon 08-27-2024 Anion gap [Moles/Vol] Serum or plasma anion gap determination [facility] Serum or plasma total choles terol/high density lipoprotein (HDL) cholesterol mass misael 08-27-2024 Cholesterol.total/Ch olesterol in HDL [Mass ratio] Serum or plasma total cholesterol/high density lipoprotein (HDL) cholesterol mass rat [facility] Comment on above: 3.3 - 4.4 LOW RISK4. 4 - 7.1 AVERAGE RISK7.1 - 11.0 MODERATE RISK>11.0 HIGH RISK MG MAMM SCREEN 3D GLENYS CADon 12-08-2021 MG MAMM SCREEN 3D GLENYS CAD Patient: ALICIA WAN Exam Date: 12/08/2021 : 1950 Gender:F Ordering : DR ISRRAEL CRUZ D.O. Admission #: [id number] Family : Order #: [id number] CLICK HERE TO VIEW EXAM RADIOLOGY REPORT [...] myeloma cancer at age 65. LOCATION: [facility] BREAST COMPOSITION: Heterogeneously dense,which may obscure small [...] MD on 12/09/2021 at 11:59 Normal [facility] CBC AUTO DIFFon 09-07-2021 BASO # 0.1 103/ul Normal 0.0-0.1 [facility] Comment on above: Performed By: #### D ATCBC #### [facility] [address] [place] [address] Dr. Pk Duckworth Basophils/100 WBC (Bld) 0.6 % Normal 0.2-2.0 [facility] Comment on above: Performed By: #### D ATCBC #### [facility] [address] [place] [address] Dr. Pk Duckworth EO # 0.2 103/ul Normal 0.0-0.7 [facility] Comment on above: Performed By: #### D ATCBC #### [facility] [address] [place] [address] Dr. Pk Duckworth Eosinophils/100 WBC (Bld) 2.8 % Normal 0.9-7.0 [facility] Comment on above: Performed By: #### D ATCBC #### [facility] [address] [place] [address] Dr. Pk Duckworth Erythrocyte distribution width (RBC) [Ratio] 12.3 % Normal 11.0-15.0 [facility] Comment on above: Performed By: #### D ATCBC #### [facility] [address] [place] [address] Dr. Pk Duckworth Hematocrit (Bld) [Volume fraction] 47.7 % Normal 36.0-48.0 [facility] Comment on above: Performed By: #### D ATCBC #### [facility] [address] [place] [address] Dr. Pk Duckworth Hemoglobin (Bld) [Mass/Vol] 15.6 g/dL Normal 12.0-16.0 [facility] Comment on above: Performed By: #### D ATCBC #### [facility] [address] [address] [address] Pk Duckworth IG # 0.02 10e3/ul Normal 0.00-0.03 [facility] Comment on above: Performed By: #### D ATCBC #### [facility] [address] [address] [address] Pk Duckworth IG % 0.3 % Normal 0.0-0.5 [facility] Comment on above: Performed By: #### D ATCBC #### [facility] [address] [address] [address] Pk Duckworth LYMPH # 2.4 103/ul Normal 1.2-3.8 [facility] Comment on above: Performed By: #### D ATCBC #### [facility] [address] [place] [address] Dr. Pk Duckworth Lymphocytes/100 WBC (Bld) 30.4 % Normal 20.5-60.0 [facility] Comment on above: Performed By: #### D ATCBC #### [facility] [address] [place] [address] Dr. Pk Duckworth MCH (RBC) [Entitic mass] 29.3 pg Normal 26.7-34.0 [facility] Comment on above: Performed By: #### D ATCBC #### [facility] [address] [place] [address] Dr. Pk Duckworth MCHC (RBC) [Mass/Vol] 32.7 g/dL Normal 29.9-35.2 [facility] Comment on above: Performed By: #### D ATCBC #### [facility] [address] [place] [address] Dr. Pk Duckworth MCV (RBC) [Entitic vol] 89.7 fL Normal 81.0-99.0 [facility] Comment on above: Performed By: #### D ATCBC #### [facility] [address] [address] [address] Pk Duckworth MONO # 0.4 103/ul Normal 0.3-0.8 [facility] Comment on above: Performed By: #### D ATCBC #### [facility] [address] [place] [address] Dr. Pk Duckworth Monocytes/100 WBC (Bld) 5.5 % Normal 1.7-12.0 [facility] Comment on above: Performed By: #### D ATCBC #### [facility] [address] [place] [address] Dr. Pk Duckworth NEUT # 4.8 103/ul Normal 1.4-6.5 [facility] Comment on above: Performed By: #### D ATCBC #### [facility] [address] [place] [address] Dr. Pk Duckworth Neutrophils/100 WBC (Bld) 60.4 % Normal 43.0-75.0 [facility] Comment on above: Performed By: #### D ATCBC #### [facility] [address] [place] [address] Dr. Pk Duckworth Platelet mean volume (Bld) [Entitic vol] 10.3 fL Normal 9.5-13.5 [facility] Comment on above: Performed By: #### D ATCBC #### [facility] [address] [place] [address] Dr. Pk Duckworth PLT 270 103/ul Normal 150-450 [facility] Comment on above: Performed By: #### D ATCBC #### [facility] [address] [place] [address] Dr. Pk Duckworth RBC 5.32 106/ul Normal 4.20-5.40 [facility] Comment on above: Performed By: #### D ATCBC #### [facility] [address] [place] [address] Dr. Pk Duckworth WBC 8.0 103/ul Normal 4.0-11.0 [facility] Comment on above: Performed By: #### D ATCBC #### [facility] [address] [place] [address] Dr. Pk Duckworth CAMRON- BMP WITH LIPIDon 2021 Anion gap [Moles/Vol] 11.9 mmol/L Normal [facility] Comment on above: Performed By: #### D ATBMP #### [facility] [address] [address] [address] Pk Duckworth Calcium [Mass/Vol] 9.1 mg/dL Normal 8.4-10.2 [facility] Comment on above: Performed By: #### D ATBMP #### [facility] [address] [address] [address] Pk Duckworth Chloride [Moles/Vol] 102 mmol/L Normal 98-107 [facility] Comment on above: Performed By: #### D ATBMP #### [facility] [address] [address] [address] Pk Duckworth Cholesterol [Mass/Vol] 227 mg/dL Critically high <=200 [facility] Comment on above: Performed By: #### D ATBMP #### [facility] [address] [address] [address] Pk Duckworth Cholesterol in HDL [Mass/Vol] 60 mg/dL Normal [facility] Comment on above: Performed By: #### D ATBMP #### [facility] [address] [address] [address] Pk Duckworth Cholesterol in LDL [Mass/Vol] 104.2 mg/dL Normal [facility] Comment on above: Performed By: #### D ATBMP #### [facility] [address] [address] [address] Pk Duckworth CO2 [Moles/Vol] 30.2 mmol/L Critically high 22.0-30.0 [facility] Comment on above: Performed By: #### D ATBMP #### [facility] [address] [address] [address] Pk Duckworth Creatinine [Mass/Vol] 0.71 mg/dL Normal 0.52-1.04 [facility] Comment on above: Performed By: #### D ATBMP #### [facility] [address] [address] [address] Pk Duckworth EGFR-AF SAO TOMEAN >60 Normal >=60 [facility] Comment on above: Performed By: #### D ATBMP #### [facility] [address] [address] [address] Pk Duckworth EGFR-NON AF SAO TOMEAN >60 Normal >=60 [facility] Comment on above: Performed By: #### D ATBMP #### [facility] [address] [address] [address] Pk Duckworth Glucose [Mass/Vol] 113 mg/dL Critically high 74-106 [facility] Comment on above: Performed By: #### D ATBMP #### [facility] [address] [address] [address] Pk Duckworth HDL NORMAL > or = 60 mg/dl - LO W CARDIOVASCULAR RISK <40 mg/dl - HIGH CARDIOVASCULAR RISK Normal [facility] Comment on above: Performed By: #### D ATBMP #### [facility] [address] [address] [address] Pk Duckworth LDL CALC NORMAL SEE BELOW Normal [facility] Comment on above: Result Comment: <100 mg/dl OPTIMAL 100 - 129 mg/dl NEAR OR ABOVE OPTIMAL 130 - 159 mg/dl BORDERLINE HIGH 160 - 189 mg/dl HIGH >190 mg/dl VERY HIGH Performed By: #### D ATBMP #### [facility] [address] [address] [address] Pk Duckworth Potassium [Moles/Vol] 4.1 mmol/L Normal 3.4-5.0 [facility] Comment on above: Performed By: #### D ATBMP #### [facility] [address] [address] [address] Pk Duckworth Sodium [Moles/Vol] 140 mmol/L Normal 137-145 [facility] Comment on above: Performed By: #### D ATBMP #### [facility] [address] [address] [address] Pk Duckworth Triglyceride [Mass/Vol] 314 mg/dL Critically high <=150 [facility] Comment on above: Performed By: #### D ATBMP #### [facility] [address] [address] [address] Pk Duckworth Urea nitrogen [Mass/Vol] 19.0 mg/dL Critically high 7.0-17.0 [facility] Comment on above: Performed By: #### D ATBMP #### [facility] [address] [address] [address] Pk Duckworth Urea nitrogen/Creatinine [Mass ratio] 26.8 mg/mg Normal [facility] Comment on above: Performed By: #### D ATBMP #### [facility] [id number] Pk Duckworth VLDL CALC 62.8 mg/dL Normal [facility] Comment on above: Performed By: #### D ATBMP #### [facility] [id number] Pk Duckworth Progress Note-Physicianon Progress Note-Physician [...] date 08/10/20 7:30:00 EST Documented Medications Documented Iron Calcium with Vitamin D: 1 tab(s), Oral, Daily, Prophylaxis CoQ10: 400 mg, Oral, Daily, Prophylaxis Multivitamin, Therapeutic w/ Minerals: 1 tab(s), Oral, Daily, Prophylaxis rosuvastatin 10 mg Tab: 10 mg = 1 tab(s), Oral, Daily, Prophylaxis, Home Medications (4) Active Iron Calcium with Vitamin D 1 tab(s), Oral, [...] Results review: No qualifying data available . [facility] Comment on above: Result Comment: Elec tronically Signed By: Jose M Jones CRNA IntraOperative Documentson 0 08-13-2020 IntraOperative Documents [id number]#1.00 CD:127 Normal [facility] Coding Summary.on 08-12-2020 Coding Summary. CODING DATE: FINAL [place] STATUS: Home (Routine DC) PAYOR: Commercial Insurance [...] CphT Date Saved: 08/12/2020 08:05 pm Normal [facility] Coding Summary. CODING DATE: FINAL [place] STATUS: Home (Routine DC) PAYOR: Medicare APC DESCRIPTION 5491 Level 1 Intraocular Procedures ADMIT DX: REASON FOR VISIT DX: H25.13 Age-related nuclear cataract, bilateral FINAL DX: PRINCIPAL: H25.13 Age-related nuclear cataract, bilateral SECONDARY: E78.00 Pure hypercholesterolemia, unspecified PYMT PROC APC STAT DESCRIPTION DOCTOR NAME DATE 24225 5491 J1 Extracapsular cataract Patrick Calle DO [...] [place] Revised Date Saved: 08/11/2020 01:53 pm [facility] Main OR Intraoperative Recor don 02-11-2021 Main OR Intraoperative Record IntraOp Document Type FT Summary Primary Physician: Patrick Calle DO Finalized Date/Time: 08/12/20 13:24:28 Pt. Name: SAVAGE ALICIA Alex Woods/Sex: 1950 Female Med Rec #: [id number] Physician: Patrick Calle DO Financial #: [id number] Pt. Type: A Room/Bed: [place] [address] Admit/Disch: 08/10/20 07:24:15 - 08/10/20 10:30:00 Institution: [...] Garcia RN Role Performed Surgeon - Primary Technology Auditor - Primary Technology Auditor - Primary Time In 08/10/20 09:20:00 08/10/20 [...] Calle DO, Given Participants Viviane Arzate RN, Zurdo MURILLO, Lamar Appiah IT SECURITY CONSULTANT/Criss DANIELSON Time Out Complete 08/10/20 09:23:00 Outcomes [...] safely administered during the perioperative period For [place] please see scanned medication reconcilliation form for medications used at the field during the procedure. Implant Log FT Pre-Care Text: Records devices implanted during the operative or invasive procedure Entry 1 Procedure CATARACT EXTRACTION W/ Implant/Explant Implant INTRAOCULAR LENS(Left) Implant Identification FT Description LILO [id number] 12.50MM Serial Number [id number] 22.00 [[id number]][F] Lot Number [id number] Security Screener FT-BAUSCH [employer] LOM[employer] Catalog ?# [id number] [F] Size 22.0 Expiration Date 01/29/23 Unique Device [id number] Identifier (FLAKITA) Human Readable {[id number] Machine Readable [id number] Barcode Barcode Usage Data FT Implant Site [...] SONIA Pascual RN, Andrea 08/12/20 13:24 Normal [facility] Operative Reporton Operative Report Date of [...] care. Patrick Calle D.O. gls Dictated: 08/10/2020 #[id number] Typed: 08/11/2020 #[id number] cc: Patrick Calle D.O. [facility] Comment on above: Result Comment: Elec tronically Signed By: Patrick Calle DO\.br\Date and Time Signed: 08/12/20 14:09 EST Discharge Instructionson Discharge Instructions [id number] CD:127 [facility] IntraOperative Documentson 0 08-11-2020 IntraOperative Documents [id number]#1.00 CD:127 [facility] Preoperative Documentson Preoperative Documents [id number]#1.00 CD:127 Normal [facility] Consent for Procedure/Surger yon 08-10-2020 Consent for Procedure/Surgery [id number]#1.00 CD:127 Normal [facility] Consent for Treatmenton Consent for Treatment [id number] D:127 Normal [facility] History and Physicalon 08-10 History and [...] living. Patrick Calle D.O. gls Dictated: 08/09/2020 #[id number] Typed 08/10/2020 #[id number] cc: Patrick Calle D.O. Normal [facility] Comment on above: Result Comment: Elec tronically Signed By: Patrick Calle DO\.br\Date and Time Signed: 08/10/20 08:05 EST Inpatient Patient Summaryon 08-10-2020 Inpatient Patient Summary [address] [address] [facility] Clinical Discharge Instructions PERSON INFORMATION Name: ALICIA WAN PHYSICIANS Admitting Physician: Patrick Calle DO Attending Physician: Patrick Calle DO PCP: ISRRAEL CRUZ DO Discharge Diagnosis: Cataract Comment: PATIENT EDUCATION INFORMATION Instructions: Medication Leaflets: Follow up: With: Address: When: Patrick Calle [facility] [address] [id number] Business (1) Within 1 to 2 days MEDICATION LIST Medications to Continue with No Changes Other Medications biotin (Hair, Skin & Nails) 3 Tablets By Mouth every day. calcium-vitamin D (Iron Calcium with Vitamin D) 1 Tablets By Mouth every day. multivitamin with minerals (Multivitamin, Therapeutic w/ Minerals) 1 Tablets By Mouth every day. rosuvastatin (rosuvastatin 10 mg Tab) 1 Tablets By Mouth every day. ubiquinone (CoQ10) 400 Milligram By Mouth every day. Comment: Normal [facility] IntraOperative Documentson 0 08-10-2020 IntraOperative Documents [id number] CD:127 Normal [facility] Main OR Preoperative Recordo n 08-10-2020 Main OR Preoperative Record PreOp Document Type FT Summary Primary Physician: Patrick Calle DO Finalized Date/Time: 08/10/20 10:10:30 Pt. Name: ALICIA WAN./Sex: 1950 Female Med Rec #: [id number] Physician: Patrick Calle DO Financial #: [id number] Pt. Type: A Room/Bed: [facility] Admit/Disch: 08/10/20 07:24:15 - Institution: Case Times [...] By: Shelley Campos RN 08/10/20 10:10 Normal [facility] Outpatient Surgery Discharge Instructionon 08-10-2020 Outpatient Surgery Discharge Instruction [place] [id number] Patient Discharge Instructions PERSON INFORMATION Name: ALICIA [...] Follow up: With: Address: When: Patrick Calle [facility] [address], [address] [address] Business (1) Within 1 to 2 days [...] to serve you. Thank you for choosing [facility] HERE ARE THE MEDICATION CHANGES THAT OCCURRED DURING YOUR HOSPITAL STAY Medications to Continue with No Changes Other Medications biotin (Hair, Skin & Nails) 3 Tablets By Mouth every day. calcium-vitamin D (Iron Calcium with Vitamin D) 1 Tablets By Mouth every day. multivitamin with minerals (Multivitamin, Therapeutic w/ Minerals) 1 Tablets By Mouth every day. rosuvastatin (rosuvastatin 10 mg Tab) 1 Tablets By Mouth every day. ubiquinone (CoQ10) 400 Milligram By Mouth every day. PATIENT EDUCATION INFORMATION Instructions: [facility] Patient Education - Texton 0 08-10-2020 Patient Education - Text [facility] Progress Note-Physicianon Progress Note-Physician Patient: ALICIA WAN [...] Estimated Blood Loss: 0 ml. Complications: None. [facility] Comment on above: Result Comment: Elec tronically Signed By: Patrick Calle DO\.br\Date and Time Signed: 08/10/20 09:39 EST Priority Order-Yunier 2020 Priority [facility]STAT [facility] Comment on above: Result Comment: Rece ived Performed at: [facility] [address] [facility], [place] [id number] MD Valerie Ren Performed By: #### S ARS-CoV-2, ELMO, [id number] ####[facility] [address] [place] [address] SARS-CoV-2, NAAon 08-05-2020 SARS CORONAVIRUS 2 RNA:PRTHR:PT:RESPIRA TORY:ORD:PROBE.AMP.T AR Not Detected Not Detected [facility] Comment on above: Result Comment: This nucleic acid amplification test was developed and its performance characteristics determined by [employer]. Nucleic acid amplification tests include RT-PCR and [...] detected) result in this assay. Performed at: [facility] [address] [facility] [place] [id number] MD Valerie Ren Performed By: #### S ARS-CoV-2, ELMO, [id number] ####[facility] [address] [place] [address] Coding Summary.on 07-29-2020 Coding Summary. CODING DATE: 021 FINAL [place] STATUS: Home (Routine DC) PAYOR: Commercial Insurance [...] CphT Date Saved: 07/29/2020 01:31 pm Normal [facility] Priority Order-Yunier 2020 Priority Order-STAT Comment Dannyantonella joseph [facility] Comment on above: Result Comment: Rece ived Performed at: [facility] [address] [place], [place] [id number] MD Valerie Ren Performed By: #### 2 [id number], SARS-CoV-2, ELMO ####[facility] [address] [place] [address] SARS-CoV-2, NAAon 07-22-2020 SARS CORONAVIRUS 2 RNA:PRTHR:PT:RESPIRA TORY:ORD:PROBE.AMP.T AR Not Detected Not Detected [facility] Comment on above: Result Comment: This nucleic acid amplification test was developed and its performance characteristics determined by [employer]. Nucleic acid amplification tests include RT-PCR and [...] detected) result in this assay. Performed at: [facility] [address] [facility] [place] [id number] MD Valerie Ren Performed By: #### 2 [id number], SARS-CoV-2, ELMO ####[facility] [address] [place] [address] Vital Signs Date Time Vital Sign Value Performing Clinician Facility 08-27-2024 10:09-0500 Body height 157.48 cm PHYSICIAN NO [facility] 08-27-2024 10:09-0500 Body mass index (BMI) [Ratio] 28.1 kg/m2 PHYSICIAN NO [facility] 08-27-2024 10:09-0500 Body weight 69.85 kg PHYSICIAN NO [facility] 08-27-2024 10:09-0500 Diastolic blood pressure 82 mm[Hg] PHYSICIAN NO [facility] 08-27-2024 10:09-0500 Heart rate 123 /min PHYSICIAN NO [facility] 08-27-2024 10:09-0500 Respiratory rate 12 /min PHYSICIAN NO [facility] 08-27-2024 10:09-0500 Systolic blood pressure 125 mm[Hg] PHYSICIAN NO [facility] 08-03-2023 08:30-0500 Body height 157.48 cm Isrrael Ball Other [facility] [employer] Other 08-03-2023 08:30-0500 Body mass index (BMI) [Ratio] 33.43 kg/m2 Isrrael Ball Other [facility] [employer] Other 08-03-2023 08:30-0500 Body weight 82.92 kg Isrrael Ball Other [employer] [facility] [employer] Other 08-03-2023 08:30-0500 Diastolic blood pressure 78 mm[Hg] Isrrael Ball Other [employer] [facility] [employer] Other 08-03-2023 08:30-0500 Respiratory rate 12 /min Isrrael Ball Other [facility] [employer] Other 08-03-2023 08:30-0500 Systolic blood pressure 121 mm[Hg] Isrrael Ball Other [employer] Other 01-31-2023 08:30-0400 Body height 157.48 cm Isrrael Ball Other [employer] Other 01-31-2023 08:30-0400 Body mass index (BMI) [Ratio] 33.69 kg/m2 Isrrael Ball Other [employer] Other 01-31-2023 08:30-0400 Body weight 83.55 kg Isrrael Ball Other [employer] Other 01-31-2023 08:30-0400 Diastolic blood pressure 83 mm[Hg] Isrrael Ball Other [employer] Other 01-31-2023 08:30-0400 Respiratory rate 12 /min Isrrael Ball Other [employer] Other 01-31-2023 08:30-0400 Systolic blood pressure 148 mm[Hg] Isrrael Ball Other [employer] Other 08-21-2022 08:30-0500 Body height 157.48 cm Isrrael Ball Other [employer] Other 08-21-2022 08:30-0500 Body mass index (BMI) [Ratio] 34.71 kg/m2 Isrrael Ball Other [employer] Other 08-21-2022 08:30-0500 Body weight 86.09 kg Isrrael Ball Other [employer] Other 08-21-2022 08:30-0500 Diastolic blood pressure 80 mm[Hg] Isrrael Ball Other [employer] Other 08-21-2022 08:30-0500 Respiratory rate 12 /min Isrrael Ball Other [employer] Other 08-21-2022 08:30-0500 Systolic blood pressure 124 mm[Hg] Isrrael Ball Other [employer] Other Encounters Encounter Date Encounter Type Care Provider Facility Start: 08-27-2024 End: 08-27-2024 ambulatory PHYSICIAN RIKA [facility] Work Phone: Start: 08-27-2024 End: 08-27-2024 Patient encounter procedure PHYSICIAN NO [facility] Work Phone: Start: 08-03-2023 End: 08-03-2023 ambulatory Isrrael Cruz Other [employer] Other Start: 08-03-2023 Office outpatient visit 25 minutes Isrrael Cruz [facility] Start: 05-17-2023 End: 05-17-2023 ambulatory sIrrael Cruz Other [employer] Other Start: 05-17-2023 Nursing evaluation o f patient and report Isrrael Cruz [facility] Start: 02-15-2023 End: 02-15-2023 ambulatory Isrrael Cruz Other [employer] Other Start: 02-15-2023 Telephone encounter Isrrael Cruz [facility] Start: 01-31-2023 End: 01-31-2023 ambulatory Isrrael Cruz Other [employer] Other Start: 01-31-2023 Patient encounter procedure Isrrael Cruz [facility] Start: 08-21-2022 End: 08-21-2022 ambulatory Isrrael Cruz Other [employer] Other Start: 08-21-2022 Patient encounter procedure Isrrael Cruz [facility] Start: 12-08-2021 End: 12-09-[address] ISRRAEL CRUZ Facility:H1 Start: 09-07-2021 End: 09-08-2021 ambulatory NONE LISTED REQUEST Facility:[facility]1 Plan of Treatment Date Care Activity Detail Author Start: 08-27-2024 EKG 12 channel panel [facility] Immunizations Immunization Date Immunization Notes Care Provider Catherine harris 03-27-2024 influenza, high dose seasonal, preservative-free PHYSICIAN NO [facility] 05-17-2023 influenza virus vaccine, unspecified formulation PHYSICIAN NO [facility] 05-17-2023 influenza, high dose seasonal, preservative-free Isrrael Cruz Other [employer] Other 03-30-2021 influenza virus vaccine, split virus (incl. purified surface antigen) Isrrael Cruz Other [employer] Other 03-30-2021 influenza virus vaccine, unspecified formulation PHYSICIAN NO [facility] 10-09-2020 COVID-19 Vaccine Moderna - Documentation Purposes Only Isrrael Cruz Other [facility] 09-11-2020 COVID-19 Vaccine Moderna - Documentation Purposes Only Isrrael Cruz Other [facility] 03-26-2020 influenza virus vaccine, split virus (incl. purified surface antigen) Isrrael Cruz Other [employer] Other 03-26-2020 influenza virus vaccine, unspecified formulation PHYSICIAN NO [facility] 03-26-2019 influenza virus vaccine, split virus (incl. purified surface antigen) Isrrael Cruz Other [employer] Other 03-26-2019 influenza virus vaccine, unspecified formulation PHYSICIAN NO [facility] 09-23-2018 pneumococcal polysaccharide vaccine, 23 valent Isrrael Cruz Other [facility] 03-21-2018 influenza virus vaccine, split virus (incl. purified surface antigen) Isrrael Cruz Other [employer] Other 03-21-2018 influenza virus vaccine, unspecified formulation PHYSICIAN NO [facility] 03-21-2017 influenza virus vaccine, split virus (incl. purified surface antigen) Isrrael Cruz Other [employer] Other 03-21-2017 influenza virus vaccine, unspecified formulation PHYSICIAN NO [facility] 03-15-2016 influenza virus vaccine, split virus (incl. purified surface antigen) Isrrael Cruz Other [facility] [employer] Other 03-15-2016 influenza virus vaccine, unspecified formulation PHYSICIAN NO [facility] 09-17-2015 pneumococcal conjuga te vaccine, 13 valent Isrrael Cruz Other [facility] 03-09-2015 influenza virus vaccine, split virus (incl. purified surface antigen) Isrrael Cruz Other [facility] [employer] Other 03-09-2015 influenza virus vaccine, unspecified formulation PHYSICIAN NO [facility] 03-26-2013 tetanus and diphther ia toxoids, adsorbed, preservative free, for adult use (5 Lf of tetanus toxoid and 2 Lf of diphtheria toxoid) Isrrael Cruz Other [facility] Payers Date Payer Category Payer Self-pay 1960 Medicare [id number] 1960 Self-pay [id number] 1960 Unknown [id number] 1950 Unknown [id number] Private Health Insurance [facility] [id number] Unknown [id number] Unknown [id number] Social History Date Type Detail Facility Sex Assigned At [facility] [employer] Other Start: 02-25-2024 Tobacco smoking stat [facility] Never smoked tobacco (finding) [facility] Start: 08-27-2024 End: 08-28-2024 Sex Female (finding) [facility] Start: 1950 Sex Assigned At Female F [facility] Evaluation note 08-27-2024 Note Date & Type Note Facility 08-27-2024 Evaluation note Diagnosis Onset Date Resolution Hypercholesterolemia acute Febr uary 2024 9:44am Hypertension acute August 9:44am Lower extremity edema acute Feb ruary 2024 9:44am MCI (mild cognitive impairment) acute August 27, 2024 9:44am Tachycardia acute August 9:44am Unexplained weight loss acute F ebruary 2024 9:44am [facility] Work Phone: Evaluation note 08-03-2023 Note [...] index [BMI] 33.0-33.9, adult (ICD-10 - Z68.33) [employer] Other Evaluation note 02-15-2023 Note Date & Type Note Facility 02-15-2023 Evaluation note Encounter Date Diagnosis Assessment Notes Jan, Primary hypertension (ICD-10 - I10) [employer] Other Evaluation note 01-31-2023 Note Date & [...] D supplements - continue weight bearing exercises [employer] Other Evaluation note 08-21-2022 Note Date & [...] in remission (ICD-10 - F17.211) Continue abstinence [employer] Other Evaluation note Note Date & Type Note Facility Evaluation note No Information [employer] Other Evaluation note Note Date & Type Note Facility Evaluation note Diagnosis Onset Date Resolution Hypercholesterolemia acute Febr uary 2024 9:44am Hypertension acute August 9:44am MCI (mild cognitive impairment) acute August 27, 2024 9:44am Tachycardia acute August 9:44am Unexplained weight loss acute F ebruary 2024 9:44am [facility] Work Phone: History general Narrative - Reported [...] History CHOLECYSTECTOMY Hospitalization History SEE SURGICAL HX [employer] Other Summary Purpose Family History No Family [...] section and content) DATE CREATED AUTHOR 08/19/2020 [facility] DATE CREATED AUTHOR AUTHOR'S ORGANIZ ATION 12/12/2021 [facility] DATE CREATED AUTHOR AUTHOR'S ORGANIZ ATION 08/29/2024 [facility] REASON FOR VISIT (unrecogniz [...] BE BASED ON THE PRIMARY CLINICAL RECORDS. [employer] [facility]. provides no warranty or guarantee of the accuracy or completeness of information in this document.
--- NOTE | 2024-09-01 20:08 | ED.GENADUL1 ---
HPI HPI - General Adult General Chief complaint: Weakness Stated complaint: LEGS SWOLLEN Time Seen by Provider: 09/01/24 19:53 Source: patient and family Mode of arrival: Wheelchair Limitations: no limitations History of Present Illness HPI narrative: This 74-year-old female is brought to the emergency department by her . She has lost 40 pounds in the past 2 years. She was seen recently by her family physician and an ultrasound of her abdomen was ordered that shows a large ill-defined nodular area in the liver which is slightly hyperechoic measuring 8.7 x 9.3 x 7.8 cm. The patient presents today mostly for concerns about lower extremity swelling. For the past 3 weeks she has been getting generally weaker and having increased swelling in her legs. At this point she has 3+ pitting edema from her feet to her thighs and there is some weeping of the calfs. She denies any abdominal pain. According to her she has basically stopped eating. The patient states she does not have any appetite. She denies any chest pain or shortness of breath. She denies any dizziness. She is generally weak and somewhat confused with difficulty answering questions. Otherwise she has no focal neurologic deficits. I did review her ultrasound report which recommended a CT scan and also her labs from last week which indicated some degree of hypothyroidism with a TSH of 13. Related Data Home Medications ?Medication ?Instructions ?Recorded ?Confirmed bisoprolol 5 1 tab PO QDAY 09/01/24 09/01/24 mg-hydrochlorothiazide 6.25 mg tablet ferrous sulfate 325 mg (65 mg 325 mg PO DAILY 09/01/24 09/01/24 iron) tablet (FeroSul) levothyroxine 25 mcg tablet 25 mcg PO QDAY 09/01/24 09/01/24 losartan 25 mg tablet 25 mg PO QDAY 09/01/24 09/01/24 rosuvastatin 10 mg tablet 10 mg PO QDAY 09/01/24 09/01/24 Allergies Allergy/AdvReac Type Severity Reaction Status Date / Time No Known Drug Allergies Allergy Verified 09/01/24 19:20 Opioid HPI Opioid Management Most Recent Opioid Data: No Data to Display Review of Systems ROS Status of ROS 10 or more systems reviewed and unremarkable except as noted in history and below PFSH PFSH Social History Little interest or pleasure in doing things: not at all Feeling down, depressed, or hopeless: not at all Exam Narrative Exam Narrative: Vital signs and Nursing Notes reviewed: Patient is afebrile with a normal pulse, blood pressure is elevated 146/80, she is not hypoxic with pulse ox of 96% on room air General: Awake, alert, oriented, no acute distress, appears generally weak, patient is slow to answer questions and respond but otherwise alert HEENT: Normocephalic atraumatic, mucous membranes are moist and pink, eyes are clear, normal conjunctiva, vision is grossly intact, posterior pharynx is normal in appearance. Neck: Supple, no jvd Chest: Lungs are clear to auscultation with good air entry, there is no wheezing rhonchi or rales appreciated no accessory muscle use, patient is speaking in complete sentences-no chest wall tenderness to palpation CVS: Regular rate and rhythm S1-S2, no murmurs rubs or gallops, pulses are brisk and equal bilaterally ABD: Soft, fullness with appreciable hepatomegaly in the right upper lobe, the abdomen is otherwise soft and nondistended, no pulsatile masses are appreciated Extremities: 3+ lower extremity swelling from the patient's feet to the thighs. There is clear serous fluid weeping from the anterior lower leg mostly on the right, feet are swollen but dorsalis pedis pulses are palpable Skin: Flat pink rash on bilateral lower extremities Neuro: Slow to respond to questions and requests to sit up or move but otherwise appropriate with no facial droop, slurred speech or gross focal neurologic deficits. Constitutional Vital Signs, click to edit/add: Last Vital Signs Temp 97.7 F 09/01/24 19:22 Pulse 77 09/02/24 00:28 Resp 14 09/02/24 00:20 BP 123/83 09/01/24 23:30 Pulse Ox 100 09/01/24 23:40 O2 Del Method Room Air 09/01/24 19:22 Course Vital Signs Vital signs: Vital Signs Temperature 97.7 F 09/01/24 19:22 Pulse Rate 94 H 09/01/24 19:22 Respiratory Rate 18 09/01/24 19:22 Blood Pressure 146/80 H 09/01/24 19:22 Pulse Oximetry 96 09/01/24 19:22 Oxygen Delivery Method Room Air 09/01/24 19:22 Temperature 97.7 F 09/01/24 19:22 Pulse Rate 77 03/04/25 00:28 Respiratory Rate 14 09/02/24 00:20 Blood Pressure 123/83 09/01/24 23:30 Pulse Oximetry 100 09/01/24 23:40 Oxygen Delivery Method Room Air 09/01/24 19:22 Medical Decision Making MDM Narrative Medical decision making narrative: This 74-year-old female was brought to the emergency department by her . For the past 2 years the patient has been consistently losing weight at this time she has lost up to 40 pounds. The patient states she does not eat when she is not hungry and just does not have an appetite. She had an ultrasound done as an outpatient recently that showed a mass in her liver. She was supposed to be referred for outpatient testing but her brought her to the emergency department. She has been having bilateral lower extremity swelling for the past several weeks that has become increasingly severe with some weeping from her legs. She does not have any chest pain or shortness of breath. She does not have a history of cardiac disease. She has pitting edema from her feet to her thighs. EKG is a sinus rhythm at 83 bpm with a right axis deviation and nonspecific ST changes but does not show any acute ST segment elevation. An IV was placed and she was medicated with gentle IV hydration and 20 mg of IV Lasix. Routine labs are ordered and are reviewed. She has a normal white count and hemoglobin. Sodium is mildly low at 133 and potassium is mildly low at 3.2. Her total bili is mildly elevated at 1.4. AST is elevated at 87. ALT is normal at 34, alk phos is elevated at 384, ammonia is normal at 20. Troponin is normal at 9.1. BNP is normal at 514. Her lactic acid was elevated at 6.1. She was given oral potassium replacement. A Horton catheter was placed after the Lasix was given. She does have a urinary tract infection with 10-20 white blood cell per high-power field and positive bacteria. She received a gram of IV Rocephin for the UTI. CT scan of the chest abdomen pelvis was ordered. CT scan of the chest shows a normal thoracic aorta with no aneurysm or dissection with central pulmonary arteries normal in caliber. No pulmonary embolus. There is scattered subsegmental scarring or atelectasis in both lungs most pronounced adjacent to the markedly elevated right hemidiaphragm. No pneumothorax or pericardial effusion was appreciated. There is a large mass extending from the abdominal superiorly extending and displacing the mediastinum to the left. There is severe compression of the inferior vena cava with no definite flow identified within the most superior aspect of the intrahepatic IVC. In the abdomen there is a very large mass extending from the dome of the liver superiorly into the chest and into the mediastinum. The exact measurements were difficult however it was measured at 15 cm x 15 cm in transverse and AP dimensions and and 12 cm in craniocaudal dimension. It was centrally low in attenuation then peripherally high attenuation extending into and appeared to invade the mediastinum with a shift of mediastinal structures to the left. These findings were consistent with malignancy with recommendation for tissue sampling. In the abdomen pelvis there was no acute diverticulitis with wall thickening within the cecum ascending and proximal transverse colon which was thought to be nonspecific in the setting of ascites which was present however colitis could represent a similar appearance. There was no bowel obstruction with diffuse air-filled loops of small bowel centrally within the mid abdomen. There was no free air. CT scan of the brain was also ordered and does not show any acute intracranial process. The results with the patient's labs, urinalysis and CT scans were discussed with the patient and her family. They request that I initiate a transfer to [facility]. Case was discussed with Oncologist, Dr Malhotra from Counts include [facility] beds at the [facility]. She is accepted for transfer. Medical Records Medical records reviewed: Yes I reviewed the patient's medical records Lab Data Lab results reviewed: Yes I reviewed the patient's lab results Labs: Lab Results 09/01/24 09/01/24 09/01/24 Range/Units 20:17 20:35 21:57 WBC 8.4 (4.0-11.0) 10^3/uL RBC 5.44 H (4.20-5.40) 10^6/uL Hgb 12.8 (12.0-16.0) g/dL Hct 41.7 (36.0-48.0) % MCV 76.7 L (81.0-99.0) fL MCH 23.5 L (26.7-34.0) pg MCHC 30.7 (29.9-35.2) g/dL RDW 18.0 H (11.0-15.0) % Plt Count 371 (150-450) 10^3/uL MPV 9.1 L (9.5-13.5) fL Seg Neuts % (Manual) 88.0 H (43.0-75.0) Lymphocytes % (Manual) 7.0 L (20.5-60.0) % Monocytes % (Manual) 5.0 (1.7-12.0) % Eosinophils % (Manual) 0.0 L (0.9-7.0) % Basophils % (Manual) 0.0 L (0.2-2.0) % Neutrophils # (Manual) 7.39 H (1.4-6.5) 10^3/uL Lymphocytes # (Manual) 0.58 L (1.20-3.80) 10^3/uL Monocytes # (Manual) 0.42 (0.30-0.80) 10^3/uL Eosinophils # (Manual) 0.00 (0.00-0.70) 10^3/uL Basophils # (Manual) 0.00 (0.00-0.10) 10^3/uL Hypersegmented Neuts 1+ Ovalocytes 1+ Sodium 133 L (136-145) mmol/L Potassium 3.2 L (3.5-5.1) mmol/L Chloride 95 L (98-107) mmol/L Carbon Dioxide 22.5 (21.0-32.0) mmol/L Anion Gap 18.7 BUN 16.0 (7.0-18.0) mg/dL Creatinine 0.87 (0.55-1.02) mg/dL Est GFR ( Amer) >60 (>=60 mL/min/1.73m^2) Est GFR (Non-Af Amer) >60 (>=60 mL/min/1.73m^2) BUN/Creatinine Ratio 18.4 Glucose 151 H (74-106) mg/dL Lactate 6.1 H* (0.4-2.0) mmol/L Calcium 9.0 (8.5-10.1) mg/dL Total Bilirubin 1.4 H (0.2-1.0) mg/dL AST 87 H (15-37) U/L ALT 34 (14-59) U/L Alkaline Phosphatase 384 H (46-116) U/L Ammonia 20 (11-32) umol/L Troponin I High Sens 9.1 (4.0-51.3) pg/mL NT-Pro-B Natriuret Pep 514.0 (<=1800.0) pg/mL Total Protein 7.0 (6.4-8.2) g/dL Albumin 2.7 L (3.4-5.0) g/dL Globulin 4.3 g/dL Albumin/Globulin Ratio 0.6 Urine Color Lt. yellow (YELLOW) Urine Clarity Clear (CLEAR) Urine pH 5.5 (5.0-9.0) Ur Specific Rembert 1.015 (1.005-1.025) Urine Protein Negative (NEG/TRACE) mg/dL Urine Glucose (UA) Negative (NEGATIVE) mg/dL Urine Ketones Negative (NEGATIVE) mg/dL Urine Occult Blood Small A (NEGATIVE) Urine Nitrite Negative (NEGATIVE) Urine Bilirubin Negative (NEGATIVE) Urine Urobilinogen 1.0 (0.2-1.0) EU/dL Ur Leukocyte Esterase Moderate A (NEGATIVE) Urine RBC 0-2 (0-2) #/HPF Urine WBC 10-20 A (NONE SEEN) #/HPF Ur Squamous Epith Cells Few A (NONE/RARE) #/LPF Ur Transition Epith Cell Rare A (NONE SEEN) #/LPF Urine Crystals Seen A (None Seen) #/HPF Uric Acid Crystals Rare Urine Bacteria Large A (NONE SEEN) #/HPF Urine Casts None seen (NONE SEEN) #/LPF Urine Mucus Small A (NONE SEEN) Ur Culture Indicated? Yes-[facility] ECG Data Attestation: I personally reviewed and interpreted this ECG as follows: (Sinus rhythm 83 bpm, right axis deviation, nonspecific ST changes, no acute ST segment elevation or T wave inversion) Discharge Plan Discharge Chief Complaint: Weakness Clinical Impression: Liver mass, right lobe, Edema of both lower extremities, Acute UTI Patient Disposition: [facility] Time of Disposition Decision: 23:30 Condition: Fair Mode of Transportation: EMS Prescriptions / Home Meds: No Action bisoprolol-hydrochlorothiazide 5-6.25 mg tablet 1 tab PO QDAY levothyroxine 25 mcg tablet 25 mcg PO QDAY losartan 25 mg tablet 25 mg PO QDAY rosuvastatin 10 mg tablet 10 mg PO QDAY ferrous sulfate [FeroSul] 325 mg (65 mg iron) tablet 325 mg PO DAILY Print Language: Tuvaluan Referrals: Isrrael Cruz DO [Primary Care Provider] - 1 week
[2024-09-01 20:26] LABS: Hematocrit 41.7 % (36.0-48.0); Hemoglobin 12.8 g/dL (12.0-16.0); Mean Corpuscular HGB Conc 30.7 g/dL (29.9-35.2); Mean Corpuscular Hemoglobin 23.5 pg (26.7-34.0); Mean Corpuscular Volume 76.7 fL (81.0-99.0); Mean Platelet Volume 9.1 fL (9.5-13.5); Platelet Count 371 10^3/uL (150-450); Red Blood Count 5.44 10^6/uL (4.20-5.40); White Blood Count 8.4 10^3/uL (4.0-11.0)
[2024-09-01 20:42] LABS: Alanine Aminotransferase 34 U/L (14-59); Albumin Globulin Ratio 0.6; Albumin Level 2.7 g/dL (3.4-5.0); Alkaline Phosphatase 384 U/L (46-116); Anion Gap 18.7; Aspartate Amino Transferase 87 U/L (15-37); BUN Creatinine Ratio 18.4; Bilirubin Total 1.4 mg/dL (0.2-1.0); Carbon Dioxide 22.5 mmol/L (21.0-32.0); Chloride 95 mmol/L (98-107); Estimated GFR (African America >60 (>=60 mL/min/1.73m^2); Estimated GFR (Non-African Ame >60 (>=60 mL/min/1.73m^2); Globulin 4.3 g/dL; Glucose 151 mg/dL (74-106); Potassium 3.2 mmol/L (3.5-5.1); Sodium 133 mmol/L (136-145)
[2024-09-01 20:43] LABS: Hypersegmented Neutrophils 1+; Lymphocytes Absolute Manual 0.58 10^3/uL (1.20-3.80); Monocytes Absolute Manual 0.42 10^3/uL (0.30-0.80); Ovalocytes 1+; Segmented Neut Absolute Manual 7.39 10^3/uL (1.4-6.5)
[2024-09-01 20:48] LABS: Troponin I High Sensitivity 9.1 pg/mL (4.0-51.3)
[2024-09-01 20:52] LABS: Ammonia 20 umol/L (11-32)
[2024-09-01 20:53] LABS: Lactate/Lactic Acid 6.1 mmol/L (0.4-2.0)
[2024-09-01] MEDS: 0.9 % SODIUM CHLORIDE 1,000 ML 500 ML IV (21:10)
[2024-09-01] MEDS: POTASSIUM BICARBONATE/CIT 25 MEQ TABLET EFF PO (21:10)
[2024-09-01] MEDS: FUROSEMIDE 20 MG/2 ML VIAL IVP (21:10)
[2024-09-01 22:07] LABS: Bilirubin Urine NEGATIVE (NEGATIVE); Blood Urine SMALL (NEGATIVE); Clarity Urine CLEAR (CLEAR); Color Urine LT. YELLOW (YELLOW); Glucose Urine UA NEGATIVE (NEGATIVE); Ketones Urine NEGATIVE (NEGATIVE); Leukocyte Esterase Urine MODERATE (NEGATIVE); Nitrite Urine NEGATIVE (NEGATIVE); Protein Urine NEGATIVE (NEG/TRACE); Specific Gravity Urine 1.015 (1.005-1.025); pH Urine 5.5 (5.0-9.0)
[2024-09-01 22:16] LABS: Bacteria Urine LARGE #/HPF (NONE SEEN); Cast Seen? NONE SEEN #/LPF (NONE SEEN); Crystals Seen? Seen #/HPF (None Seen); Mucus Urine SMALL (NONE SEEN); RBC Urine 0-2 #/HPF (0-2); Squamous Epithelial Cell Urine FEW #/LPF (NONE/RARE); Transitional Epi Cells Urine RARE #/LPF (NONE SEEN); Uric Acid Crystals Urine RARE; Urine Culture Indicated YES-FRMC
[2024-09-01] MEDS: CEFTRIAXONE 1,000 MG in 0.9 % SODIUM CHLORIDE 50 ML 100 MG IV (22:42)
--- NOTE | 2024-09-01 23:38 | ECG_ITS ---
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
[2024-09-02] VITALS: PULSE 81
[2024-09-02 00:10] VITALS: PULSE 79
[2024-09-02 00:20] VITALS: PULSE 79
[2024-09-02 00:28] VITALS: PULSE 77
== END 2024-09-02 02:52 | disposition short-term general hospital (02) ==
PROVIDERS: Emergency Provider Emergency Medicine; PCP Internal Medicine
DX: R16.0 Hepatomegaly, not elsewhere classified (principal); N39.0 Urinary tract infection, site not specified; R60.0 Localized edema; R53.1 Weakness; R41.0 Disorientation, unspecified; R63.4 Abnormal weight loss
CPT/HCPCS: 36415; 70450; 71260; 74177; 80053; 81001; 82140; 83605; 83880; 84484; 85007; 85027; 87086; 87150; 87186; 93005; 96365; 96375; 99285; J0696; J1940; Q9967